=== PATIENT | male | born 1950 ===

== ENCOUNTER → 2020-04-10 15:29 | Outpatient (BNVA) | payer MEDICARE, SELFPAY | PROVIDERS: Visit Provider Nurse Practitioner | DX: K51.30 Ulcerative (chronic) rectosigmoiditis without complications (principal); Z79.899 Other long term (current) drug therapy | CPT/HCPCS: 99212 ==

== ENCOUNTER → 2020-10-08 13:59 | Outpatient (BNVA) | payer BC, MEDICARE, SELFPAY | PROVIDERS: Visit Provider Nurse Practitioner | DX: K51.30 Ulcerative (chronic) rectosigmoiditis without complications (principal) | CPT/HCPCS: 99212 ==

== ENCOUNTER 2020-11-28 10:04 | Outpatient (REF) | payer BC, MEDICARE, SELFPAY ==
[2020-11-28 12:42] LABS: Blood Urea Nitrogen 17 mg/dL (9-16); Estimated Glomerular Filt Rate > 60
== END 2020-11-28 10:05 | disposition home or self-care (01) ==
LOC: HO.LAB 10:04
PROVIDERS: PCP Internal Medicine; Visit Provider Surgery
DX: K57.92 Diverticulitis of intestine, part unspecified, without perforation or abscess without bleeding (principal); K76.9 Liver disease, unspecified
CPT/HCPCS: 36415; 82565; 84520; 99202

== ENCOUNTER 2020-12-12 15:37 | Outpatient (REF) | payer BC, MEDICARE, SELFPAY ==
--- NOTE | ~2020-12-12 | MR_ITS ---
EXAMINATION: MR ABDOMEN WITHOUT AND WITH CONTRAST CLINICAL INFORMATION: Liver disease COMPARISON: No images. Outside abdominal pelvic CT report 11/08/2020 TECHNIQUE: MR abdomen was performed without and with use of 10 mL intravenous Gadavist gadolinium contrast. Postcontrast images are performed in multiphase dynamic sequences. Imaging was performed in 3 planes. FINDINGS: LUNG BASES: The visualized lung bases are unremarkable. LIVER, GALLBLADDER, AND BILIARY TREE: The liver is normal in size and contour. There is fatty infiltration of the liver. There is a 1.5 cm cyst high in the dome of the right lobe of the liver this is low signal on T1-weighted sequences, high signal on T2-weighted sequences and demonstrates no evidence of enhancement. No other focal liver lesion is seen. The gallbladder is normal. There is no biliary duct dilatation.. PANCREAS: There is fatty infiltration of the pancreas. Pancreas is otherwise unremarkable. SPLEEN: Normal. ADRENAL GLANDS: Normal. KIDNEYS AND URETERS: The kidneys are normal in size, shape, and enhance symmetrically. No hydronephrosis. No perinephric stranding. GASTROINTESTINAL TRACT: There is diverticulosis of the colon.. No ascites or fluid collection. ABDOMINAL WALL: There may be an umbilical hernia containing fat. LYMPH NODES: No lymphadenopathy. VASCULAR: Unremarkable. OSSEOUS STRUCTURES: Marrow signal normal. Degenerative changes of the spine. MR/MR abdomen wo/w con IMPRESSION: Fatty infiltration of the liver. 1.4 cm cyst high in the dome of the right lobe of the liver. No other focal liver lesion. Fatty infiltration of the pancreas. Diverticulosis of the colon.
== END 2020-12-12 15:38 | disposition home or self-care (01) ==
LOC: HO.MRI 15:37
PROVIDERS: Visit Provider Surgery
DX: K76.9 Liver disease, unspecified (principal)
CPT/HCPCS: 74183

== ENCOUNTER 2020-12-13 10:26 | Outpatient (REF) | payer BC, MEDICARE, SELFPAY ==
[2020-12-13 13:55] LABS: Alanine Aminotransferase 20 U/L (0-40); Alkaline Phosphatase 58 U/L (39-117); Aspartate Amino Transferase 15 U/L (5-37); Bilirubin Direct 0.2 mg/dL (0.0-0.5); Bilirubin Total 0.6 mg/dL (0.0-1.0); Total Protein 6.6 g/dL (6.5-8.0)
[2020-12-13 14:02] LABS: Ferritin 56 ng/mL (20-250)
[2020-12-16 07:56] LABS: HBc Num1 0.11 S/CO (0.00-0.79); HBsAGNum1 0.18 S/CO (0.00-0.99); Hepatitis B Core Antibody Nonreactive (Nonreactive); Hepatitis B Surface Antigen Negative (Negative)
[2020-12-16 08:09] LABS: HBS Num1 0.49 mIU/mL (0-7.99); ~HepC Num1 0.12 S/CO (0.00-0.79); ~Hepatitis B Surface Antibody NONREACTIVE (Nonreactive); ~Hepatitis C Antibody Nonreactive (Nonreactive)
[2020-12-17 12:26] LABS: Mitochondrial Antibodies NEGATIVE (NEGATIVE)
[2020-12-18 08:17] LABS: Hepatitis A Antibody IgM 0.19 Index (0-0.79); ~Hepatitis A Antibody IgM Nonreactive (Nonreactive)
[2020-12-18 11:31] LABS: Smooth Muscle Antibody <20 U (<20)
[2020-12-18 12:31] LABS: Alpha Fetoprotein 1.6 ng/mL (<6.1)
== END 2020-12-13 10:27 | disposition home or self-care (01) ==
LOC: HO.LAB 10:26
PROVIDERS: PCP Internal Medicine; Visit Provider Nurse Practitioner
DX: K51.30 Ulcerative (chronic) rectosigmoiditis without complications (principal); K76.9 Liver disease, unspecified; K57.92 Diverticulitis of intestine, part unspecified, without perforation or abscess without bleeding; K76.0 Fatty (change of) liver, not elsewhere classified; K76.89 Other specified diseases of liver
CPT/HCPCS: 36415; 80076; 82105; 82728; 86255; 86256; 86704; 86706; 86709; 86803; 87340

== ENCOUNTER → 2021-01-23 08:54 | Outpatient (BNVA) | payer BC, MEDICARE, SELFPAY | PROVIDERS: PCP Internal Medicine; Visit Provider Nurse Practitioner ==

== ENCOUNTER 2021-07-04 08:28 | Outpatient (REF) | payer BC, MEDICARE, SELFPAY ==
[2021-07-04 10:16] LABS: MANUAL DIFF FLAG NO
[2021-07-04 10:53] LABS: Basophils Absolute Auto 0.1 X10*3/uL (0.0-0.2); Basophils Percent Auto 0.8 % (0-2); Eosinophils Absolute Auto 1.2 X10*3/uL (0.0-0.4); Eosinophils Percent Auto 15.4 % (0-4); Hematocrit 42.2 % (42.0-52.0); Hemoglobin 13.9 g/dl (14.0-18.0); Imm Gran Abs Auto 0.06 X10*3/uL (0.00-0.03); Imm Gran Pct Auto 0.8 % (0.0-0.4); Lymphocytes Absolute Auto 2.6 X10*3/uL (1.2-4.9); Lymphocytes Percent Auto 34.1 % (20-40); Mean Corpuscular HGB Conc 32.9 g/dl (31.0-36.0); Mean Corpuscular Hemoglobin 28.6 pg (27.0-33.0); Mean Corpuscular Volume 86.8 fL (80.0-98.0); Mean Platelet Volume 8.8 fL (9.4-12.4); Monocytes Absolute Auto 0.7 X10*3/uL (0.1-1.2); Monocytes Percent Auto 8.9 % (2-11); Neutrophils Absolute Auto 3.1 x10*3/uL (2.0-8.3); Platelet Count 177 X10*3/uL (160-400); Red Blood Count 4.86 X10*6/uL (4.60-5.80); Red Cell Distribution Width 13.8 % (11.0-16.0); White Blood Count 7.7 X10*3/uL (4.8-10.8)
[2021-07-04 11:29] LABS: Alanine Aminotransferase 19 U/L (0-40); Albumin Level 3.9 g/dL (3.5-5.0); Alkaline Phosphatase 67 U/L (39-117); Aspartate Amino Transferase 14 U/L (5-37); Bilirubin Direct 0.2 mg/dL (0.0-0.5); Bilirubin Total 0.4 mg/dL (0.0-1.0); Total Protein 6.8 g/dL (6.5-8.0)
[2021-07-07 13:06] LABS: Alpha Fetoprotein 1.4 ng/mL (<6.1)
== END 2021-07-04 08:29 | disposition home or self-care (01) ==
LOC: HO.LAB 08:28
PROVIDERS: PCP Internal Medicine; Visit Provider Nurse Practitioner
DX: K51.30 Ulcerative (chronic) rectosigmoiditis without complications (principal); K75.81 Nonalcoholic steatohepatitis (NASH)
CPT/HCPCS: 36415; 80076; 82105; 85025; 99212

== ENCOUNTER → 2021-08-01 07:31 | Outpatient (BNVA) | payer BC, MEDICARE, SELFPAY | PROVIDERS: PCP Internal Medicine; Visit Provider Nurse Practitioner ==

== ENCOUNTER 2021-08-22 14:06 | Outpatient (REF) | payer BC, MEDICARE, SELFPAY ==
--- NOTE | ~2021-08-22 | US_ITS ---
EXAMINATION: US ABDOMEN LIMITED CLINICAL INFORMATION: Ulcerative (chronic) rectosigmoiditis, ROMO. Liver cyst on MRI. COMPARISON: MR abdomen without and with contrast 12/12/2020. TECHNIQUE: Real-time imaging of the right upper quadrant abdominal viscera. FINDINGS: PANCREAS: The pancreas is completely obscured by overlying gas. LIVER: The liver is normal in size. The liver contour is normal. No anechoic cysts seen to correspond with MRI liver findings. No focal hepatic lesion. There is no intrahepatic biliary duct dilatation seen. GALLBLADDER: The gallbladder wall thickness is 0.3 cm. The gallbladder is physiologically distended without evidence of stones, sludge, polyps, wall thickening or pericholecystic fluid. There are echogenic non-mobile areas along the inner gallbladder wall questioning adenomyomatosis. COMMON BILE DUCT: Not visualized. RIGHT KIDNEY: Normal. No hydronephrosis. No renal calculi or focal parenchymal lesions. The kidney measures 10.6 cm in maximum dimension. FREE FLUID: None. US/US abdomen limited IMPRESSION: Likely adenomyomatosis of the gallbladder. Pancreas, liver, and right kidney are unremarkable. The CBD is not seen. No liver cyst seen on ultrasound.
== END 2021-08-22 14:07 | disposition home or self-care (01) ==
LOC: HO.US 14:06
PROVIDERS: Visit Provider Nurse Practitioner
DX: K51.30 Ulcerative (chronic) rectosigmoiditis without complications (principal); K75.81 Nonalcoholic steatohepatitis (NASH)
CPT/HCPCS: 76705

== ENCOUNTER 2021-08-29 07:23 | Outpatient (REF) | payer BC, MEDICARE, SELFPAY ==
[2021-08-29 08:59] LABS: MANUAL DIFF FLAG NO
[2021-08-29 09:14] LABS: Basophils Percent Auto 0.3 % (0-2); Eosinophils Absolute Auto 0.3 X10*3/uL (0.0-0.4); Eosinophils Percent Auto 3.7 % (0-4); Hematocrit 40.8 % (42.0-52.0); Hemoglobin 13.3 g/dl (14.0-18.0); Imm Gran Abs Auto 0.06 X10*3/uL (0.00-0.03); Imm Gran Pct Auto 0.8 % (0.0-0.4); Lymphocytes Absolute Auto 1.6 X10*3/uL (1.2-4.9); Lymphocytes Percent Auto 21.5 % (20-40); Mean Corpuscular HGB Conc 32.6 g/dl (31.0-36.0); Mean Corpuscular Hemoglobin 28.3 pg (27.0-33.0); Mean Corpuscular Volume 86.8 fL (80.0-98.0); Mean Platelet Volume 8.8 fL (9.4-12.4); Monocytes Absolute Auto 0.6 X10*3/uL (0.1-1.2); Monocytes Percent Auto 7.8 % (2-11); Neutrophils Absolute Auto 4.9 x10*3/uL (2.0-8.3); Neutrophils Percent Auto 65.9 % (45-73); Platelet Count 176 X10*3/uL (160-400); Red Cell Distribution Width 13.5 % (11.0-16.0); White Blood Count 7.4 X10*3/uL (4.8-10.8)
[2021-08-29 09:36] LABS: C Reactive Protein 9.19 mg/dL (< or = 0.50)
== END 2021-08-29 07:24 | disposition home or self-care (01) ==
LOC: HO.LAB 07:23
PROVIDERS: PCP Internal Medicine; Visit Provider Nurse Practitioner
DX: K62.89 Other specified diseases of anus and rectum (principal); K51.30 Ulcerative (chronic) rectosigmoiditis without complications; K75.81 Nonalcoholic steatohepatitis (NASH)
CPT/HCPCS: 36415; 85025; 86140; 87071; 87073; 87205

== ENCOUNTER 2021-09-12 07:39 | Outpatient (REF) | payer BC, MEDICARE, SELFPAY ==
[2021-09-12 09:45] LABS: C Reactive Protein 0.91 mg/dL (< or = 0.50)
== END 2021-09-12 07:40 | disposition home or self-care (01) ==
LOC: HO.LAB 07:39
PROVIDERS: PCP Internal Medicine; Visit Provider Nurse Practitioner
DX: K51.30 Ulcerative (chronic) rectosigmoiditis without complications (principal); K62.89 Other specified diseases of anus and rectum
CPT/HCPCS: 36415; 86140

== ENCOUNTER → 2021-10-07 07:18 | Outpatient (BNVA) | payer BC, MEDICARE, SELFPAY | PROVIDERS: PCP Family Medicine; Visit Provider Nurse Practitioner | DX: K75.81 Nonalcoholic steatohepatitis (NASH) (principal); K51.30 Ulcerative (chronic) rectosigmoiditis without complications | CPT/HCPCS: 99212 ==

== ENCOUNTER → 2021-12-26 08:23 | Outpatient (BNVA) | payer MEDICARE, MEDICAID, SELFPAY | PROVIDERS: PCP Family Medicine; Visit Provider Nurse Practitioner | DX: K51.30 Ulcerative (chronic) rectosigmoiditis without complications (principal); K50.10 Crohn's disease of large intestine without complications; Z79.52 Long term (current) use of systemic steroids | CPT/HCPCS: 99212 ==

== ENCOUNTER 2022-01-02 09:13 | Outpatient (REF) | payer MEDICARE, MEDICAID, SELFPAY ==
[2022-01-06 23:21] LABS: TS Negative Control Passed; TS Panel A 0; TS Panel B 0; TS Positive Control Passed; TSpotTB Negative (Negative)
== END 2022-01-02 09:14 | disposition home or self-care (01) ==
LOC: HO.LAB 09:13
PROVIDERS: PCP Family Medicine; Visit Provider Nurse Practitioner
DX: Z11.1 Encounter for screening for respiratory tuberculosis (principal); K50.10 Crohn's disease of large intestine without complications
CPT/HCPCS: 36415; 86481

== ENCOUNTER → 2022-01-06 08:39 | Outpatient (BNVA) | payer MEDICARE, MEDICAID, OTHER, SELFPAY | PROVIDERS: PCP Family Medicine; Referring Provider Family Medicine; Visit Provider Nurse Practitioner | DX: K50.10 Crohn's disease of large intestine without complications (principal) | CPT/HCPCS: 99212 ==

== ENCOUNTER → 2022-02-18 09:10 | Outpatient (BNVA) | payer MEDICARE, MEDICAID, SELFPAY | PROVIDERS: PCP Family Medicine; Visit Provider Nurse Practitioner | DX: K50.10 Crohn's disease of large intestine without complications (principal); E11.9 Type 2 diabetes mellitus without complications | CPT/HCPCS: 99212 ==

== ENCOUNTER → 2022-05-13 13:49 | Outpatient (BNVA) | payer MEDICARE, MEDICAID, SELFPAY | PROVIDERS: PCP Family Medicine; Visit Provider Nurse Practitioner | DX: K50.10 Crohn's disease of large intestine without complications (principal); K75.81 Nonalcoholic steatohepatitis (NASH) | CPT/HCPCS: 99212 ==

== ENCOUNTER → 2022-06-24 09:01 | Outpatient (BNVA) | payer MEDICARE, MEDICAID, SELFPAY | PROVIDERS: PCP Family Medicine; Referring Provider Family Medicine; Visit Provider Nurse Practitioner | DX: K50.10 Crohn's disease of large intestine without complications (principal); K75.81 Nonalcoholic steatohepatitis (NASH) | CPT/HCPCS: 99212 ==

== ENCOUNTER → 2022-07-10 09:15 | Outpatient (BNVA) | payer MEDICARE, MEDICAID, SELFPAY | PROVIDERS: PCP Family Medicine; Visit Provider Nurse Practitioner | DX: K50.10 Crohn's disease of large intestine without complications (principal); K75.81 Nonalcoholic steatohepatitis (NASH) | CPT/HCPCS: 99212 ==

== ENCOUNTER 2022-07-31 07:16 | Day surgery (SDC) | payer MEDICARE, OTHER, SELFPAY ==
[2022-07-31 07:57] VITALS: BMI 38.0
[2022-07-31 08:25] VITALS: BP 127/63; PULSE 99; RESP 18; TEMP 36.6; O2SAT 98
[2022-07-31 08:27] LABS: Glucose, Whole Blood 125 mg/dL (60-115)
--- NOTE | 2022-07-31 09:11 | HO.ANESPROP2 ---
HPI - Anesthesia Eval Consult details Narrative: sceening chrohns PMFSH Active Problems Active Problems: All Active Problems (Updated 02/18/22 @ 12:20 by JONATHAN Leo) Diabetes (Acute) Crohn's colitis (Acute) Rectal cyst (Acute) Sepsis (Acute) ROMO (nonalcoholic steatohepatitis) (Acute) Diverticulitis (Acute) Liver cyst (Acute) probableOSA Past Medical History Medical History Diverticulitis Family History Family History Mother Diabetes Breast cancer, Onset Age: 74 Surgical History Surgical History History of right hip replacement Hx of colonoscopy Social History Social History Alcohol intake: current Alcohol intake frequency: does not drink Patient Tobacco Use Status: Never used Tobacco Second Hand Smoke Exposure: No Use of substances other than those prescribed or required for medical reasons: No Are you DNR?: No Advance Directives: No Advance Directives Information Provided: Yes Advance Directives on File: No Meds Allergies Allergy/AdvReac Type Severity Reaction Status Date / Time No Known Allergies Allergy Verified 07/10/22 09:27 Home Medications Medication Instructions Recorded Confirmed Last Taken Type furosemide 20 mg tablet 20 mg PO DAILY 11/28/20 11/28/20 Unknown History naproxen 500 mg tablet,delayed 500 mg PO BID PRN 07/04/21 Unknown History release (EC-Naproxen) blood sugar diagnostic (FreeStyle #10 ea 10/07/21 Unknown History Lite Strips) blood-glucose meter (FreeStyle #1 ea 10/07/21 Unknown History Lite Meter kit) insulin syringe-needle U-100 0.5 #10 ea 10/07/21 Unknown History mL 30 gauge x 1/2 (BD Insulin Syringe Ultra-Fine) pen needle, diabetic 32 gauge x #50 ea 02/18/22 Unknown History 1/4 (Novofine 32) insulin aspart U-100 100 unit/mL subcut 05/13/22 Unknown History subcutaneous solution (Novolog U-100 Insulin aspart) insulin degludec 100 unit/mL (3 45 unit subcut BEDTIME 05/13/22 Unknown History mL) subcutaneous pen (Tresiba FlexTouch U-100 insulin) insulin syringe-needle U-100 0.3 #10 ea 05/13/22 Unknown History mL 31 gauge x 5/16 (BD Insulin Syringe Ultra-Fine) metformin 1,000 mg tablet 1,000 mg PO BID 05/13/22 Unknown History Exam Exam Date and Time: July 31, 2022 0911 Height,Weight and Vital Signs: Height 5 ft 10 in Weight 120.202 kg Last Vital Signs Temp 97.9 F 07/31/22 08:25 Pulse 99 07/31/22 08:25 Resp 18 07/31/22 08:25 BP 127/63 07/31/22 08:25 Pulse Ox 98 07/31/22 08:25 O2 Del Method 07/31/22 08:25 Pertinent Lab Results Pertinent Lab Results: Laboratory Tests 07/31/22 08:23 POC Glucose 125 H Airway Mallampati Class: II (Large neck ) TM Dist: <=3cm Neck ROM: Full Loose/Missing/Broken Teeth: No Heart: rr Lungs: cta Assessment and Plan Final Anesthetic Review Patient Risk: Intermediate Procedure Risk: Low Anesthetic Plan Anesthetic Plan: MAC: Disposition: Standard PACU
--- NOTE | 2022-07-31 09:27 | MHC.SHP ---
Pre-Procedural Eval Section A Date of Service: 07/31/22 The patient is an INPATIENT: No Changes since office visit: Yes Patient answered all questions; No Cold of Flu in the past 2 weeks, No New Medical Problems and No Changes in Medication The History & Physical has been completed within 30 days and I have reviewed it.: Yes Section B Chief Complaint: Nonalcoholic steatohepatitis (ROMO),crohn's diseas Allergies: Allergies Allergy/AdvReac Type Severity Reaction Status Date / Time No Known Allergies Allergy Verified 07/10/22 09:27 Plan I have reviewed the history and physical and performed a pertinent physical examination on my patient. No changes have occurred unless specified. Time Spent With Patient Time: Total time managing care of this patient today ____ minutes.
--- NOTE | 2022-07-31 09:32 | PM.OP ---
Brief Operative Note Date of Service: 07/31/22 Pre-op diagnosis: Colon cancer screening, Crohn's disease Post-op diagnosis: other (Diverticulosis, hemorrhoids, Crohn's disease) Procedure: COLONOSCOPY TO CECUM WITH BIOPSY Surgeon: Macario Torres MD Anesthesia: MAC Was an Assistant Superintendent For Curriculum used for this Procedure?: Yes Assistant Superintendent For Curriculum: Evelyn Smith Estimated blood loss (mL): 5 Pathology: other (A. T. I. bxs, R/O Crohn's disease B. random ascending colon bxs, R/O Crohn's disease C. random transverse colon bxs, R/O Crohn's disease D. random transverse colon bxs, R/O Crohn's disease E. random s) Condition: stable Disposition: PACU
--- NOTE | 2022-07-31 09:33 | W.PM.OPN ---
Operative Note Operative Note Date of Service: 07/31/22 Narrative: Pre-op diagnosis: Colon cancer screening, Crohn's disease Post-op diagnosis:?other (Diverticulosis, hemorrhoids, Crohn's disease) Surgeon: Macario Torres MD Anesthesia:?MAC COLONOSCOPY TILL CECUM WITH BIOPSIES Consent: Indications for the procedure and potential complications of bleeding, perforation, reaction to medications and missed diagnosis were discussed with the patient and informed consent was obtained. Instrument: Olympus PCF H 190 L variable stiffness pediatric colonoscope Monitoring: Vital signs and clinical assessment, intermittent blood pressure monitoring, continuous EKG monitoring, Pulse oximetry and Carbon Dioxide monitoring were done throughout the procedure. Colon withdrawl time was 23 minutes. Procedure: The patient was placed in the left lateral decubitis position and pre-procedure medications were administered. After a digital rectal examination of the ano-rectum, the video colonoscope was inserted into the rectum and advanced through the colon to the cecum. The colonoscope was slowly withdrawn in a retrograde panoramic fashion and the colon mucosa was carefully examined including a retroflexed view of the rectum. Findings and interventions are described below. Procedure Difficulty: Without difficulty Findings: Terminal Ileum: Unable to intubate the TI despite multiple attempts. Blind biopsies were obtained from the TI through the ICV. Cecum: Friable appearing mucosa with patchy erythema throughout the colon - random biopsies were obtained Ascending Colon: Friable appearing mucosa with patchy erythema throughout the colon - random biopsies were obtained Transverse Colon: Friable appearing mucosa with patchy erythema throughout the colon - random biopsies were obtained Descending Colon: Friable appearing mucosa with patchy erythema throughout the colon - random biopsies were obtained. Moderate diverticulosis Sigmoid Colon: Friable appearing mucosa with patchy erythema throughout the colon - random biopsies were obtained. Severe diverticulosis with luminal narrowing Rectum: Normal Ano-rectum: Small internal hemorrhoids Colon preparation: Good to Fair despite copious irrigation Impression and Post Procedure Diagnosis: Colonoscopy Findings: No polyps were detected Friable appearing mucosa with patchy erythema throughout the colon - random biopsies were obtained Moderate diverticulosis seen in the left colon Small hemorrhoids on retroflexed exam. Plan: Await pathology results Patient has an appointment on 08/13/22 in the [facility] with Zoya Diaz NP. Repeat Colonoscopy interval based on path results - in 4 years (start surveillance for Crohn's disease - symptom onset in 2019). Above findings were reviewed with the patient and diverticulosis handout was given in the discharge area
[2022-07-31 10:22] VITALS: BP 119/65; PULSE 95; RESP 16; TEMP 36.8; O2SAT 96
[2022-07-31 10:37] VITALS: BP 128/77; PULSE 90; RESP 18; TEMP 36.4; O2SAT 98
== END 2022-07-31 11:30 | disposition home or self-care (01) ==
PROVIDERS: PCP Family Medicine; Visit Provider Internal Medicine Gastroenterology
PROC: 0DJD8ZZ Inspection of Lower Intestinal Tract, Via Natural or Artificial Opening Endoscopic (ICD-10-PCS; CPT 45378; principal; 2022-07-31 09:20)
DX: Z12.11 Encounter for screening for malignant neoplasm of colon (principal); K57.30 Diverticulosis of large intestine without perforation or abscess without bleeding; K64.8 Other hemorrhoids; K50.10 Crohn's disease of large intestine without complications; K75.81 Nonalcoholic steatohepatitis (NASH); E13.9 Other specified diabetes mellitus without complications; Z79.4 Long term (current) use of insulin; Z79.899 Other long term (current) drug therapy; Z87.19 Personal history of other diseases of the digestive system
CPT/HCPCS: 45380; 82947; 88305

== ENCOUNTER 2022-08-13 08:04 | Outpatient (REF) | payer MEDICARE, OTHER, SELFPAY ==
[2022-08-13 09:38] LABS: MANUAL DIFF FLAG NO
[2022-08-13 09:42] LABS: Basophils Percent Auto 0.6 % (0-2); Eosinophils Percent Auto 0.3 % (0-4); Hematocrit 43.8 % (42.0-52.0); Hemoglobin 14.2 g/dl (14.0-18.0); Imm Gran Abs Auto 0.02 X10*3/uL (0.00-0.03); Imm Gran Pct Auto 0.3 % (0.0-0.4); Lymphocytes Absolute Auto 2.7 X10*3/uL (1.2-4.9); Lymphocytes Percent Auto 39.3 % (20-40); Mean Corpuscular HGB Conc 32.4 g/dl (31.0-36.0); Mean Corpuscular Hemoglobin 28.1 pg (27.0-33.0); Mean Corpuscular Volume 86.7 fL (80.0-98.0); Mean Platelet Volume 9.4 fL (9.4-12.4); Monocytes Absolute Auto 0.7 X10*3/uL (0.1-1.2); Monocytes Percent Auto 10.8 % (2-11); Neutrophils Absolute Auto 3.3 x10*3/uL (2.0-8.3); Neutrophils Percent Auto 48.7 % (45-73); Platelet Count 198 X10*3/uL (160-400); Red Blood Count 5.05 X10*6/uL (4.60-5.80); Red Cell Distribution Width 13.2 % (11.0-16.0); White Blood Count 6.8 X10*3/uL (4.8-10.8)
[2022-08-13 10:57] LABS: Alanine Aminotransferase 16 U/L (0-40); Albumin Level 3.9 g/dL (3.5-5.0); Alkaline Phosphatase 77 U/L (39-117); Anion Gap 14 (12-20); Aspartate Amino Transferase 20 U/L (5-37); Bilirubin Total 0.7 mg/dL (0.0-1.0); Blood Urea Nitrogen 12 mg/dL (9-16); Calcium 8.8 mg/dL (8.4-10.2); Carbon Dioxide 31 mmol/L (22-29); Chloride 102 mmol/L (96-108); Estimated Glomerular Filt Rate > 60; Glucose Random 143 mg/dL (60-115); Potassium 4.5 mmol/L (3.3-5.1); Sodium 142 mmol/L (135-145); Total Protein 6.2 g/dL (6.5-8.0)
== END 2022-08-13 08:05 | disposition home or self-care (01) ==
LOC: HO.LAB 08:04
PROVIDERS: PCP Family Medicine; Referring Provider Family Medicine; Visit Provider Nurse Practitioner
DX: K75.81 Nonalcoholic steatohepatitis (NASH) (principal); K50.10 Crohn's disease of large intestine without complications
CPT/HCPCS: 36415; 80053; 82105; 85025; 99212

== ENCOUNTER 2022-09-10 09:09 | Outpatient (REF) | payer MEDICARE, OTHER, SELFPAY ==
--- NOTE | ~2022-09-10 | US_ITS ---
EXAMINATION: US ABDOMEN LIMITED CLINICAL INFORMATION: Nonalcoholic steatohepatitis. COMPARISON: Limited abdominal ultrasound 08/22/2021. MRI abdomen 12/12/2020. TECHNIQUE: Real-time imaging of the right upper quadrant abdominal viscera. FINDINGS: PANCREAS: The visible portion of the pancreas appears normal. Most of the pancreas is obscured by bowel gas. LIVER: The liver is normal in size. The liver contour is normal. There is diffuse increased liver parenchymal echogenicity, consistent with hepatic steatosis. There is a 1.4 cm simple cyst in the posterior right lobe. There is no intrahepatic biliary duct dilatation seen. GALLBLADDER: Cholesterol crystal artifact in the wall the gallbladder consistent with adenomyomatosis. No discrete gallstone. No mural edema or pericholecystic fluid. COMMON BILE DUCT: Normal in caliber measuring 0.2 cm in diameter. RIGHT KIDNEY: Normal. No hydronephrosis. No renal calculi or focal parenchymal lesions. The kidney measures 11.5 cm in maximum dimension. FREE FLUID: None. US/US abdomen limited IMPRESSION: Fatty liver.
== END 2022-09-10 09:10 | disposition home or self-care (01) ==
LOC: HO.US 09:09
PROVIDERS: PCP Family Medicine; Visit Provider Nurse Practitioner
DX: K75.81 Nonalcoholic steatohepatitis (NASH) (principal)
CPT/HCPCS: 76705

== ENCOUNTER 2022-11-12 08:13 | Outpatient (REF) | payer MEDICARE, OTHER, SELFPAY ==
[2022-11-12 10:43] LABS: C Reactive Protein 0.15 mg/dL (< or = 0.50)
== END 2022-11-12 08:14 | disposition home or self-care (01) ==
LOC: HO.LAB 08:13
PROVIDERS: PCP Family Medicine; Visit Provider Nurse Practitioner
DX: K50.10 Crohn's disease of large intestine without complications (principal); K75.81 Nonalcoholic steatohepatitis (NASH); R19.7 Diarrhea, unspecified
CPT/HCPCS: 36415; 86140; 99212

== ENCOUNTER 2022-11-17 13:10 | Outpatient (REF) | payer MEDICARE, OTHER, SELFPAY ==
[2022-11-25 23:58] LABS: Calprotectin, Fecal 60 mcg/g
== END 2022-11-17 13:11 | disposition home or self-care (01) ==
LOC: HO.LNP 13:10
PROVIDERS: Visit Provider Nurse Practitioner
DX: R19.7 Diarrhea, unspecified (principal)
CPT/HCPCS: 83993

== ENCOUNTER 2022-12-24 08:26 | Outpatient (AMB) | payer MEDICARE, MEDICAID, SELFPAY ==
--- NOTE | 2022-12-24 08:31 | MHC.OFFVIS ---
Intake Vital Signs 12/24/22 08:43 Height 5 ft 10 in Weight 240 lb 11.916 oz BMI 34.5 BP 117/66 Blood Pressure Location Lt brachial Position Sitting Pulse 92 Intake Visit Reasons: 4 week f/u r/s from 12/10 Intake Note: Naveed presents in office as a est.patient for a 3month f/u PT CC: pt reports watery/ loose stool are worse. He reports last week when he was going to the bathroom it what black water. His last dose of Humira was last Wednesday. He states yesterday his stools were back to brown but still has loose stools. He also reports appetite is non existent , and feeling weakness. He states he feels the Humira is no longer working well for him. Denies other GI symptoms. Band Saw Filer Required: No Accompanied by: Self / Same As Patient Allergies No Known Allergies Allergy (Verified 12/24/22 08:47) HPI 4 week f/u r/s from 12/10 HPI Details AAssessment & Plan (1) Crohn's colitis: ?Code(s): K50.10 - Crohn's disease of large intestine without complications ?Plan: He just had a left hip replacement! This was slightly unexpected as it became suddenly painful in the same way his right did before he had that one replaced. They also noticed a prostate growth on the MRI that he will be following up on. He is taking his Humira as prescribed, but he stools have been very loose and a lot of cramping. But he has episodes of pure water and fecal urgency - then he won't have a BM for 3 days. We will get a CRP and stool studies to look in to this. He does have a large body mass, so a dose adjustment may be needed. He has lost wt, about 10 lbs, because for about a year he has had no appetite. He is adverse of going back on the steroids r/t his diabetes control (which has been excellent recently and all insulin has been d/c'ed) and wt. This could also be a s/e of metformin. He also may be lactose intolerant, he has noted milk/cream causes some problems. We discuss Lactaid in milk and pill form. Until we find a cause I educate him that using OTC Imodium is totally fine - carmela since he has a wedding event coming up that he would like to enjoy w/o worrying about fecal urgency. .? We review all of the labs and ultrasound appears that his fatty liver is stable and is even improving once he is off the steroids with better glucose control and with weight loss. Return office visit in 4 weeks (2) ROMO (nonalcoholic steatohepatitis): ?Comment: BASELINE Laboratory Tests ?11/28/20 Estimated GFR > 60 Ferritin 56 Total Bilirubin 0.6 Direct Bilirubin 0.2 AST 15 ALT 20 Alkaline Phosphatase 58 Alpha Fetoprotein 1.6 Anti-Mitochondrial Ab NEGATIVE Anti-Smooth Muscle Ab <20 Hepatitis A IgM Ab Nonreactive Hep Bs Antigen Negative Hep Bs Antibody NONREACTIVE Hep B Core Total Ab Nonreactive Hepatitis C Ab (EIA) Nonreactive CURRENT LABS 08/13/2302/ ?[id number] WBC 6.8 Hgb 14.2 Hct 43.8 Estimated GFR > 60 Total Bilirubin 0.7 AST 20 ALT 16 Alkaline Phosphatase 77 Alpha Fetoprotein 2.0 ULTRASOUND OF THE ABDOMEN 09/16/22 FINDINGS: PANCREAS: The visible portion of the pancreas appears normal. Most of the pancreas is obscured by bowel gas. LIVER: The liver is normal in size. The liver contour is normal. There is diffuse increased liver parenchymal echogenicity, consistent with hepatic steatosis.? There is a 1.4 cm simple cyst in the posterior right lobe. There is no intrahepatic biliary duct dilatation seen. GALLBLADDER: Cholesterol crystal artifact in the wall the gallbladder consistent with adenomyomatosis. No discrete gallstone. No mural edema or pericholecystic fluid. COMMON BILE DUCT: Normal in caliber measuring 0.2 cm in diameter. RIGHT KIDNEY: Normal. No hydronephrosis. No renal calculi or focal parenchymal lesions. The kidney measures 11.5 cm in maximum dimension. FREE FLUID: None. US/US abdomen limited IMPRESSION: Fatty liver. ?Code(s): K75.81 - Nonalcoholic steatohepatitis (ROMO) (3) Acute diarrhea: ?Code(s): R19.7 - Diarrhea, unspecified ? ? ? Orders: Orders C Reactive Protein Today R19.7 - Diarrhea, unspecified ? GI Panel Today R19.7 - Diarrhea, unspecified ? Calprotectin, Feca l Today R19.7 - Diarrhea, unspecified ? LABS Laboratory Tests 11/12/22 11/17/22 09:27 10:10 C-Reactive Protein 0.15 Stool Calprotectin 60 CORRESPONDENCE . On 11/11/22 @ 14:38 Rabia Diaz Wrote To Emily,August I see patient is coming in tomorrow for a visit. I just wanted to send an FYI as he called our office yesterday stating he needed a new PA for Humira. I have already spoken w/ Abdi who has been assisting with this patient and he is actively working on it. TODAYS VISIT We review the tests and there is no indication that his Crohns is not well enoiugh controlled on the current Humira dose. Yet, he continues to have ?watery black? diarrhea on a pretty regular basis. Occasionally he will have soft stools but never anything approaching what his normal baseline was for a while after starting Humira. I am quite concerned because the GI panel I ordered does not appear to of have been processed through the lab and I want to exclude any infectious etiology.. I am also going to get a pancreatic a last taste to see if this is contributing to his diarrhea but in the meantime will start him on some Carafate 2 tabs daily hoping that this is a manifestation of irritable bowel syndrome. I am also concerned because he is losing weight and while he is obese we do not want his nutritional status compromise. It is also possible it is diarrhea secondary to his metformin since this was started about the same time we retreating the Crohn's. However this does not well explain why he did not have diarrhea for a while for started treatment. I have asked him to the GI panel again and I will see him in 2 weeks to see how he is doing on the Carafate. [facility] Medical History Diverticulitis Surgical History History of right hip replacement Hx of colonoscopy Family History Mother Diabetes Breast cancer, Onset Age: 74 Social History Alcohol intake: current Alcohol intake frequency: does not drink Patient Tobacco Use Status: Never used Tobacco Second Hand Smoke Exposure: No Review of Systems Const Denies fatigue, Denies fever(s), Denies night sweats, Denies poor appetite and Reports weight loss (Likely secondary to diarrhea) Eyes Details: glasses Reports requires corrective lenses ENT Reports Normal hearing present, Denies dental pain, Denies dysphagia, Denies hearing loss, Denies mouth pain, Denies odynophagia, Denies throat swelling, Denies tongue swelling and Reports other (Dentition adequate) Card Reports no additional complaints Resp Reports no additional complaints GI Denies abdominal pain, Denies melena, Denies bloating, Denies hematochezia, Denies constipation, Denies GI cramping, Denies dysphagia, Reports excessive flatus, Denies early satiety, Denies heartburn, Reports diarrhea, Denies nausea, Denies odynophagia, Denies vomiting and Denies hematemesis Skin/Breast Denies pruritus, Denies lesions, Denies rash and Denies jaundice Neuro Reports Normal hearing present and Denies Abnormal speech present Endo Denies fatigue Aller/Immun Denies throat swelling and Denies tongue swelling Physical Exam Vital Signs: Last Vital Signs Pulse 92 12/24/22 08:43 BP 117/66 12/24/22 08:43 BMI result Body Mass Index 34.5 Const General: cooperative, no acute distress, well developed and well groomed Nutritional Appearance: well nourished and obese Orientation/consciousness: oriented to person, oriented to place and oriented to time Limitations: No language barrier HEENT Head: Yes normocephalic and Yes atraumatic Eyes General: appearance normal, both eyes and all related structures Pupils: Equal, round and reactive pupils present Neck Neck: Yes normal visual inspection and Yes no lymphadenopathy Thyroid: Thyroid normal Resp Effort & Inspection: normal respiratory effort and able to speak in complete sentences Auscultation: clear to auscultation bilaterally Cardio Rate: regular rate Rhythm: regular rhythm Heart sounds: Normal, physiologic split S2 sound present Peripheral pulses: radial pulses present and posterior tibial pulses present GI Inspection: No distended, Yes Abdominal panniculus present and Yes obesity Palpation (GI): Soft to palpation, nontender, no guarding, not rigid and No hepatosplenomegaly present Percussion: Yes normal to percussion Auscultation: normal bowel sounds Rectal Exam - Male: Yes deferred Skin General skin exam: no rashes or lesions noted, turgor normal, skin not dry, no jaundice, No spider nevi and no striae Rashes: no rashes Nails: normal Neuro General: oriented to person, oriented to place and oriented to time Cranial nerves: Yes Equal, round and reactive pupils present and Yes Normal hearing present Speech: No Abnormal speech present Extrem General: Yes normal to inspection, No clubbing, No cyanosis and No edema Psych Appearance: grossly normal and well kempt Mental Status: mental status grossly normal Speech and movement: Normal speech and movement present Affect: normal affect Attitude: cooperative Thought process: Normal thought process present and not confabulating Thought content: Normal thought content present Insight: Good insight present (Psych) Judgement: Good judgement present (Psych) Assessment & Plan Assessment & Plan (1) Acute diarrhea: Code(s): R19.7 - Diarrhea, unspecified Plan: We review the tests and there is no indication that his Crohns is not well enoiugh controlled on the current Humira dose. Yet, he continues to have ?watery black? diarrhea on a pretty regular basis. Occasionally he will have soft stools but never anything approaching what his normal baseline was for a while after starting Humira. I am quite concerned because the GI panel I ordered does not appear to of have been processed through the lab and I want to exclude any infectious etiology.. I am also going to get a pancreatic a last taste to see if this is contributing to his diarrhea but in the meantime will start him on some Carafate 2 tabs daily hoping that this is a manifestation of irritable bowel syndrome. I am also concerned because he is losing weight and while he is obese we do not want his nutritional status compromise. It is also possible it is diarrhea secondary to his metformin since this was started about the same time we retreating the Crohn's. However this does not well explain why he did not have diarrhea for a while for started treatment. I have asked him to the GI panel again and I will see him in 2 weeks to see how he is doing on the Carafate. (2) Crohn's colitis: Code(s): K50.10 - Crohn's disease of large intestine without complications (3) ROMO (nonalcoholic steatohepatitis): Comment: BASELINE Laboratory Tests 11/28/20 Estimated GFR > 60 Ferritin 56 Total Bilirubin 0.6 Direct Bilirubin 0.2 AST 15 ALT 20 Alkaline Phosphatase 58 Alpha Fetoprotein 1.6 Anti-Mitochondrial Ab NEGATIVE Anti-Smooth Muscle Ab <20 Hepatitis A IgM Ab Nonreactive Hep Bs Antigen Negative Hep Bs Antibody NONREACTIVE Hep B Core Total Ab Nonreactive Hepatitis C Ab (EIA) Nonreactive CURRENT LABS 08/13/2302/ [id number] WBC 6.8 Hgb 14.2 Hct 43.8 Estimated GFR > 60 Total Bilirubin 0.7 AST 20 ALT 16 Alkaline Phosphatase 77 Alpha Fetoprotein 2.0 ULTRASOUND OF THE ABDOMEN 09/16/22 FINDINGS: PANCREAS: The visible portion of the pancreas appears normal. Most of the pancreas is obscured by bowel gas. LIVER: The liver is normal in size. The liver contour is normal. There is diffuse increased liver parenchymal echogenicity, consistent with hepatic steatosis.? There is a 1.4 cm simple cyst in the posterior right lobe. There is no intrahepatic biliary duct dilatation seen. GALLBLADDER: Cholesterol crystal artifact in the wall the gallbladder consistent with adenomyomatosis. No discrete gallstone. No mural edema or pericholecystic fluid. COMMON BILE DUCT: Normal in caliber measuring 0.2 cm in diameter. RIGHT KIDNEY: Normal. No hydronephrosis. No renal calculi or focal parenchymal lesions. The kidney measures 11.5 cm in maximum dimension. FREE FLUID: None. US/US abdomen limited IMPRESSION: Fatty liver. Code(s): K75.81 - Nonalcoholic steatohepatitis (ROMO) Orders: Orders Pancreatic Elastase-1 Today R19.7 - Diarrhea, unspecified Medications: New sucralfate (Carafate) 2 grams (2 x 1 gram) PO .qacsupper 60 tabs 3RF sucralfate (Carafate) 2 grams (2 x 1 gram) PO .qacsupper 60 tabs 3RF Coding Level of Care Code Est Pt Level 3 (68371) Diagnoses Acute diarrhea R19.7 Crohn's colitis K50.10 ROMO (nonalcoholic steatohepatitis) K75.81
[2022-12-24 08:43] VITALS: BP 117/66; PULSE 92; BMI 34.5
== END 2022-12-24 09:41 | disposition home or self-care (01) ==
PROVIDERS: PCP Family Medicine; Visit Provider Nurse Practitioner
DX: R19.7 Diarrhea, unspecified (principal); K50.10 Crohn's disease of large intestine without complications; K75.81 Nonalcoholic steatohepatitis (NASH)
CPT/HCPCS: 99213

== ENCOUNTER → 2022-12-24 08:26 | Outpatient (BNVA) | payer MEDICARE, OTHER, SELFPAY | PROVIDERS: PCP Family Medicine; Visit Provider Nurse Practitioner | DX: K75.81 Nonalcoholic steatohepatitis (NASH) (principal); K50.10 Crohn's disease of large intestine without complications; R19.7 Diarrhea, unspecified | CPT/HCPCS: 99212 ==

== ENCOUNTER 2022-12-25 19:09 | Emergency (ER) | payer MEDICARE, MEDICAID, SELFPAY ==
[2022-12-25 19:17] VITALS: BP 105/69; PULSE 111; RESP 18; TEMP 36.6; O2SAT 97; BMI 34.3
--- NOTE | 2022-12-25 19:17 | ED_ITS ---
HPI - General Adult General Chief complaint: Nausea/Vomiting/Diarrhea Stated complaint: diarrhea Related Data Home Medications Medication Instructions Recorded Confirmed furosemide 20 mg tablet 20 mg PO DAILY 11/28/20 11/28/20 blood sugar diagnostic (FreeStyle #10 ea 10/07/21 Lite Strips) blood-glucose meter (FreeStyle #1 ea 10/07/21 Lite Meter kit) metformin 1,000 mg tablet 1,000 mg PO BID 05/13/22 triamcinolone acetonide 0.1 % appl topical TID 12/24/22 topical cream Previous Rx's Medication Instructions Recorded mupirocin 2 % topical ointment 1 appl topical TID #22 grams 08/29/21 adalimumab 40 mg/0.8 mL 40 mg (0.8 mL) subcut .COMPLEX #6 07/01/22 subcutaneous pen kit (Humira Pen ea Crohn's[facility] Colitis-Hid Sup Starter) adalimumab 40 mg/0.8 mL See Rx Instructions subcut 08/27/22 subcutaneous pen kit (Humira Pen) .COMPLEX #2 ea sucralfate 1 gram tablet (Carafate) 2 g PO .qacsupper #60 tabs 12/24/22 Allergies Allergy/AdvReac Type Severity Reaction Status Date / Time No Known Allergies Allergy Verified 12/25/22 19:23 [facility] Past Medical History Medical History Diverticulitis Surgical History History of right hip replacement Hx of colonoscopy Family History Family History Mother Diabetes Breast cancer, Onset Age: 74 Social History Social History Alcohol intake: current Alcohol intake frequency: does not drink Patient Tobacco Use Status: Never used Tobacco Second Hand Smoke Exposure: No Advance Directives: No Advance Directives Information Provided: Yes Physical Exam ED Vital Signs: Vital Signs - 24 hr 12/25/22 19:17 12/26/22 00:00 Temperature 97.9 F 97.9 F Pulse Rate 111 H 87 Respiratory Rate 18 18 Blood Pressure 105/69 148/97 H Pulse Oximetry 97 96 Oxygen Delivery Method Room Air Room Air BMI result Body Mass Index 34.3 Course Course Course Narrative: This is a rapid medical exam: Additional HPI, ROS, PE not included below will be deferred to primary provider. Patient is a 72-year-old male with history of Crohn's colitis, ROMO, diverticulitis presenting to the ED with two weeks of diarrhea. Saw August, PRODUCTION MECHANIC TIN CANS at GI yesterday, was prescribed sucralfate, states symptoms have not improved. Reports 5-6 episodes of diarrhea today. Denies fevers. Has been tolerating fluids. Plan: labs, Medical Decision Making Lab Data 12/25/22 19:54 12/25/22 19:54 Labs: Lab Results 12/25/22 12/25/22 12/25/22 Range/Units 19:54 19:54 19:54 WBC 9.4 (4.8-10.8) X10*3/uL RBC 4.82 (4.60-5.80) X10*6/uL Hgb 13.7 L (14.0-18.0) g/dl Hct 42.2 (42.0-52.0) % MCV 87.6 (80.0-98.0) fL MCH 28.4 (27.0-33.0) pg MCHC 32.5 (31.0-36.0) g/dl RDW 13.7 (11.0-16.0) % Plt Count 207 (160-400) X10*3/uL MPV 9.3 L (9.4-12.4) fL Immature Gran % (Auto) 0.3 (0.0-0.4) % Neut % (Auto) 68.3 (45-73) % Lymph % (Auto) 25.4 (20-40) % Maury % (Auto) 5.7 (2-11) % Eos % (Auto) 0.1 (0-4) % Baso % (Auto) 0.2 (0-2) % Lymph # (Auto) 2.4 (1.2-4.9) X10*3/uL Maury # (Auto) 0.5 (0.1-1.2) X10*3/uL Eos # (Auto) 0.0 (0.0-0.4) X10*3/uL Baso # (Auto) 0.0 (0.0-0.2) X10*3/uL Abs Immat Gran (auto) 0.03 (0.00-0.03) X10*3/uL Absolute Neuts (auto) 6.4 (2.0-8.3) x10*3/uL Absolute Nucleated RBC 0.000 (0.0-0.012) X10*3/uL Nucleated RBC % (auto) 0.0 (0.0-0.2) /100WBC Sodium 141 (135-145) mmol/L Potassium 3.9 (3.3-5.1) mmol/L Chloride 104 (96-108) mmol/L Carbon Dioxide 24 (22-29) mmol/L Anion Gap 17 (12-20) BUN 16 (9-16) mg/dL Creatinine 1.04 (0.5-1.4) mg/dL Estim Creat Clear Calc 78.0 Estimated GFR > 60 Random Glucose 200 H (60-115) mg/dL Calcium 9.2 (8.4-10.2) mg/dL Magnesium 1.7 (1.6-2.6) mg/dL Total Bilirubin 0.5 (0.0-1.0) mg/dL AST 17 (5-37) U/L ALT 15 (0-40) U/L Alkaline Phosphatase 89 (39-117) U/L Total Protein 7.3 (6.5-8.0) g/dL Albumin 4.1 (3.5-5.0) g/dL Lipase 11 (8-78) U/L Urine Color Yellow Urine Appearance Clear Urine pH 5.5 (5.0-9.0) Ur Specific [place] 1.020 (1.005-1.025) Urine Protein Negative (Neg-Trace) mg/dL Urine Glucose (UA) Negative (Negative) mg/dL Urine Ketones Trace (Negative) mg/dL Urine Blood Negative (Negative) Urine Nitrite Negative (Negative) Ur Leukocyte Esterase Negative (Negative) Discharge Plan Discharge Clinical Impression: Diarrhea Patient Disposition: Elopement Prescriptions: No Action Humira Pen [id number] Start 40 mg/0.8 mL pen injector kit 40 mg subcut .COMPLEX Qty: 6 12RF Rx Instructions: 40 mg subcutaneously q 2 weeks Humira Pen 40 mg/0.8 mL pen injector kit See Rx Instructions subcut .COMPLEX Qty: 2 6RF Rx Instructions: inject one - 40 mg/0.8 mL pen every 2 weeks subcut furosemide 20 mg tablet 20 mg PO DAILY mupirocin 2 % ointment 1 appl topical TID Qty: 22 3RF (DME) blood-glucose meter [FreeStyle Lite Meter] Kit See Rx Instructions .ROUTE TID Qty: 1 Rx Instructions: As directed (DME) FreeStyle Lite Strips Strip See Rx Instructions Not Applicable DIRECTED Qty: 10 Rx Instructions: As directed metformin 1,000 mg tablet 1,000 mg PO BID triamcinolone acetonide 0.1 % cream topical TID sucralfate [Carafate] 1 gram tablet 2 g PO .qacsupper Qty: 60 3RF Interventions: ED Discharge Assessment Last Done: 12/26/22 00:16 Discharge Date/Time: 12/26/22 00:16
[2022-12-25 20:01] LABS: MANUAL DIFF FLAG NO
[2022-12-25 20:02] LABS: Basophils Percent Auto 0.2 % (0-2); Eosinophils Percent Auto 0.1 % (0-4); Hematocrit 42.2 % (42.0-52.0); Hemoglobin 13.7 g/dl (14.0-18.0); Imm Gran Abs Auto 0.03 X10*3/uL (0.00-0.03); Imm Gran Pct Auto 0.3 % (0.0-0.4); Lymphocytes Absolute Auto 2.4 X10*3/uL (1.2-4.9); Lymphocytes Percent Auto 25.4 % (20-40); Mean Corpuscular HGB Conc 32.5 g/dl (31.0-36.0); Mean Corpuscular Hemoglobin 28.4 pg (27.0-33.0); Mean Corpuscular Volume 87.6 fL (80.0-98.0); Mean Platelet Volume 9.3 fL (9.4-12.4); Monocytes Absolute Auto 0.5 X10*3/uL (0.1-1.2); Monocytes Percent Auto 5.7 % (2-11); Neutrophils Absolute Auto 6.4 x10*3/uL (2.0-8.3); Neutrophils Percent Auto 68.3 % (45-73); Platelet Count 207 X10*3/uL (160-400); Red Blood Count 4.82 X10*6/uL (4.60-5.80); Red Cell Distribution Width 13.7 % (11.0-16.0); White Blood Count 9.4 X10*3/uL (4.8-10.8)
[2022-12-25 20:04] LABS: Appearance Urine Clear; Color Urine Yellow; Glucose Urine UA Negative (Negative); Leukocyte Esterase Urine Negative (Negative); Nitrite Urine Negative (Negative); PH 5.5 (5.0-9.0); Urine Blood Negative (Negative); Urine Ketones Trace mg/dL (Negative); Urine Protein Negative (Neg-Trace)
[2022-12-25 20:40] LABS: Alanine Aminotransferase 15 U/L (0-40); Albumin Level 4.1 g/dL (3.5-5.0); Alkaline Phosphatase 89 U/L (39-117); Anion Gap 17 (12-20); Aspartate Amino Transferase 17 U/L (5-37); Bilirubin Total 0.5 mg/dL (0.0-1.0); Blood Urea Nitrogen 16 mg/dL (9-16); Calcium 9.2 mg/dL (8.4-10.2); Carbon Dioxide 24 mmol/L (22-29); Chloride 104 mmol/L (96-108); Estimated Glomerular Filt Rate > 60; Glucose Random 200 mg/dL (60-115); Lipase 11 U/L (8-78); Magnesium 1.7 mg/dL (1.6-2.6); Potassium 3.9 mmol/L (3.3-5.1); Sodium 141 mmol/L (135-145); Total Protein 7.3 g/dL (6.5-8.0)
[2022-12-26] VITALS: BP 148/97; PULSE 87; RESP 18; TEMP 36.6; O2SAT 96
== END 2022-12-26 00:16 | disposition left against medical advice (07) ==
PROVIDERS: Registered Nurse Emergency; Emergency Provider Emergency Medicine; PCP Family Medicine
DX: R19.7 Diarrhea, unspecified (principal); E11.9 Type 2 diabetes mellitus without complications; K50.10 Crohn's disease of large intestine without complications; Z79.899 Other long term (current) drug therapy; Z79.84 Long term (current) use of oral hypoglycemic drugs
CPT/HCPCS: 36415; 80053; 81003; 83690; 83735; 85025; 99282; 99283

== ENCOUNTER 2022-12-28 17:56 | Outpatient (REF) | payer MEDICARE, MEDICAID, SELFPAY ==
[2023-01-05 02:59] LABS: Pancreatic Elastase-1 489 mcg/g
== END 2022-12-28 17:57 | disposition home or self-care (01) ==
LOC: HO.LNP 17:56
PROVIDERS: Visit Provider Nurse Practitioner
DX: R19.7 Diarrhea, unspecified (principal)
CPT/HCPCS: 82656; 87507

== ENCOUNTER 2022-12-31 06:18 | Outpatient (REF) | payer MEDICARE, MEDICAID, SELFPAY ==
[2022-12-31 07:12] LABS: Hematocrit 42.2 % (42.0-52.0); Hemoglobin 13.7 g/dl (14.0-18.0); Mean Corpuscular HGB Conc 32.5 g/dl (31.0-36.0); Mean Corpuscular Hemoglobin 28.6 pg (27.0-33.0); Mean Corpuscular Volume 88.1 fL (80.0-98.0); Mean Platelet Volume 9.8 fL (9.4-12.4); Platelet Count 191 X10*3/uL (160-400); Red Blood Count 4.79 X10*6/uL (4.60-5.80); Red Cell Distribution Width 13.7 % (11.0-16.0); White Blood Count 7.1 X10*3/uL (4.8-10.8)
[2022-12-31 12:49] LABS: Adenovirus F 40/41 Not Detected (Not Detect.); Astrovirus Not Detected (Not Detect.); Campylobacter Not Detected (Not Detect.); Cryptosporidium Not Detected (Not Detect.); Cyclospora cayetanensis Not Detected (Not Detect.); E. coli EAEC Not Detected (Not Detect.); E. coli EPEC Not Detected (Not Detect.); E. coli ETEC Not Detected (Not Detect.); E. coli STEC Not Detected (Not Detect.); Entamoeba histolytica Not Detected (Not Detect.); Giardia lamblia Not Detected (Not Detect.); Norovirus GI/GII Not Detected (Not Detect.); Plesiomonas shigelloides Not Detected (Not Detect.); Rotavirus A Not Detected (Not Detect.); Salmonella Not Detected (Not Detect.); Sapovirus Not Detected (Not Detect.); Shigella sp./EIEC Not Detected (Not Detect.); Vibrio Not Detected (Not Detect.); Vibrio Cholerae Not Detected (Not Detect.); Yersinia enterocolitica Not Detected (Not Detect.)
[2022-12-31 15:07] LABS: CDiff Gene PCR NEGATIVE (Negative)
[2023-01-07 17:18] LABS: Calprotectin, Fecal 97 mcg/g
== END 2022-12-31 06:19 | disposition home or self-care (01) ==
LOC: HO.LAB 06:18
PROVIDERS: PCP Family Medicine; Visit Provider Internal Medicine
DX: K50.10 Crohn's disease of large intestine without complications (principal)
CPT/HCPCS: 36415; 83993; 85027; 86140; 87493; 87507

== ENCOUNTER 2023-01-08 08:50 | Outpatient (AMB) | payer MEDICARE, MEDICAID, SELFPAY ==
--- NOTE | 2023-01-08 08:59 | A.OFFVIS_ITS ---
Intake Vital Signs 01/08/23 09:00 Height 5 ft 10 in Weight 242 lb 8.136 oz BMI 34.8 BP 124/69 Blood Pressure Location Rt brachial Position Sitting Pulse 84 Intake Visit Reasons: 2 week follow up Intake Note: Patient presents to in office today in 2 weeks follow up. CC: Patient reports he was able to talk to director speech language nurse about his diarrhea and symptoms of diarrhea. He was advised to D/C the metformin and he is now back to normal BM. Denies other GI symptoms. Biomass Boiler Operator Required: No Accompanied by: Self / Same As Patient Allergies No Known Allergies Allergy (Verified 01/08/23 09:08) HPI 2 week follow up HPI Details Assessment & Plan (1) Acute diarrhea: ?Code(s): R19.7 - Diarrhea, unspecified ?Plan: We review the tests and there is no indication that his Crohns is not well enoiugh controlled on the current Humira dose. Yet, he continues to have ?watery black? diarrhea on a pretty regular basis.? Occasionally he will have soft stools but never anything approaching what his normal baseline was for a while after starting Humira. I am quite concerned because the GI panel I ordered does not appear to of have been processed through the lab and I want to exclude any infectious etiology..? I am also going to get a pancreatic a last taste to see if this is contributing to his diarrhea but in the meantime will start him on some Carafate 2 tabs daily hoping that this is a manifestation of irritable bowel syndrome. I am also concerned because he is losing weight and while he is obese we do not want his nutritional status compromise. It is also possible it is diarrhea secondary to his metformin since this was started about the same time we retreating the Crohn's.? However this does not well explain why he did not have diarrhea for a while for started treatment. I have asked him to the GI panel again and I will see him in 2 weeks to see how he is doing on the Carafate. (2) Crohn's colitis: ?Code(s): K50.10 - Crohn's disease of large intestine without complications (3) ROMO (nonalcoholic steatohepatitis): ?Comment: BASELINE Laboratory Tests ?11/28/20 Estimated GFR > 60 Ferritin 56 Total Bilirubin 0.6 Direct Bilirubin 0.2 AST 15 ALT 20 Alkaline Phosphatase 58 Alpha Fetoprotein 1.6 Anti-Mitochondrial Ab NEGATIVE Anti-Smooth Muscle Ab <20 Hepatitis A IgM Ab Nonreactive Hep Bs Antigen Negative Hep Bs Antibody NONREACTIVE Hep B Core Total Ab Nonreactive Hepatitis C Ab (EIA) Nonreactive CURRENT LABS 08/13/2302/ ?[id number]:3609:[id number]:36 WBC 6.8 Hgb 14.2 Hct 43.8 Estimated GFR > 60 Total Bilirubin 0.7 AST 20 ALT 16 Alkaline Phosphatase 77 Alpha Fetoprotein 2.0 ULTRASOUND OF THE ABDOMEN 09/16/22 FINDINGS: PANCREAS: The visible portion of the pancreas appears normal. Most of the pancreas is obscured by bowel gas. LIVER: The liver is normal in size. The liver contour is normal. There is diffuse increased liver parenchymal echogenicity, consistent with hepatic steatosis.? There is a 1.4 cm simple cyst in the posterior right lobe. There is no intrahepatic biliary duct dilatation seen. GALLBLADDER: Cholesterol crystal artifact in the wall the gallbladder consistent with adenomyomatosis. No discrete gallstone. No mural edema or pericholecystic fluid. COMMON BILE DUCT: Normal in caliber measuring 0.2 cm in diameter. RIGHT KIDNEY: Normal. No hydronephrosis. No renal calculi or focal parenchymal lesions. The kidney measures 11.5 cm in maximum dimension. FREE FLUID: None. US/US abdomen limited IMPRESSION: Fatty liver. ?Code(s): K75.81 - Nonalcoholic steatohepatitis (ROMO) ? ? ? Orders: Orders Pancreatic Elastas e-1 Today R19.7 - Diarrhea, unspecified ? Medications: New sucralfate (Carafa te) 2 grams (2 x 1 gra m) PO .qacsupper 6 0 tabs 3RFA ? ? sucralfate (Carafa te) 2 grams (2 x 1 gra m) PO .qacsupper 6 0 tabs 3RF LABS Laboratory Tests 12/28/22 12/31/22 12/31/22 11:45 06:38 12:05 C-Reactive Protein 0.30 Stool Calprotectin 97 Stool Pancreat Catherine stase 489 Laboratory Tests 12/25/22 12/31/22 19:54 06:38 Plt Count 191 Total Bilirubin 0.5 AST 17 ALT 15 Alkaline Phosphata se 89 CORRESPONDENCE On 01/08/23 @ 09:08 Rabia Diaz Wrote To Emily calprotectin 97, patient had f/u today On 01/07/23 @ 09:25 Rabia Diaz Wrote To Emily (2) calprotectin still pending. On 01/05/23 @ 10:13 Rabia Diaz Wrote To EmilyAugust (2) calprotectin still pending. On 01/04/23 @ 15:35 Shayla Eric Wrote To Emily (2) Hi August, patient called x2 left voice messages stating he would like to know his test results allyson, since he was up all night with diarrhea.? (Has F/U 01/08) 2ND Message states he? knows why he is having diarrhea- it is his metformin- seen Endocrine and they are going to change his medication. He stopped his metformin- blood sugar was stable, held 2 doses and no diarrhea and feels great- the best he has felt in about 2months .? I can call him back, if you like? calprotectin - still pending, not sure if he is planning on coming to F/U APPT on 01/08. TODAYS VISIT He is feeling much better since he stopped metformin!! He is having solid bowels and his fatigue and lethargy have resolved. He is now on Jardiance. He is doing well on this and his monitored BS have been very well controlled - the highest in the 116 area. HE is now satisfied with his GI regimen. He continues on Humira, is no longer taking sucralfate, and all of his labs appear to show good control of his Crohn's disease. The fecal calprotectin is very mildly elevated which could be from irritation from the metformin and we will continue the same treatment and check this again a later date. ROV 6 mos PFSH Medical History Diverticulitis Surgical History History of right hip replacement Hx of colonoscopy Family History Mother Diabetes Breast cancer, Onset Age: 74 Social History Alcohol intake: current Alcohol intake frequency: does not drink Patient Tobacco Use Status: Never used Tobacco Second Hand Smoke Exposure: No Review of Systems Const Denies fatigue, Denies fever(s), Denies night sweats, Denies poor appetite and Reports weight loss Eyes Details: Glasses Reports requires corrective lenses ENT Reports Normal hearing present, Denies dental pain, Denies dysphagia, Denies hearing loss, Denies mouth pain, Denies odynophagia, Denies throat swelling, Denies tongue swelling and Reports other (Dentition adequate) Card Reports no additional complaints Resp Reports no additional complaints GI Denies abdominal pain, Denies melena, Denies bloating, Denies hematochezia, Denies constipation, Denies GI cramping, Denies dysphagia, Denies excessive flatus, Denies early satiety, Denies heartburn, Denies diarrhea, Denies nausea, Denies odynophagia, Denies vomiting and Denies hematemesis Musc Reports back pain Skin/Breast Denies pruritus, Denies lesions, Denies rash and Denies jaundice Neuro Reports Normal hearing present and Denies Abnormal speech present Endo Denies fatigue Aller/Immun Denies throat swelling and Denies tongue swelling Physical Exam Vital Signs: Last Vital Signs Pulse 84 01/08/23 09:00 BP 124/69 01/08/23 09:00 BMI result Body Mass Index 34.8 Const General: cooperative, no acute distress, well developed and well groomed Nutritional Appearance: well nourished and obese Orientation/consciousness: oriented to person, oriented to place and oriented to time Limitations: No language barrier HEENT Head: Yes normocephalic and Yes atraumatic Eyes General: appearance normal, both eyes and all related structures Pupils: Equal, round and reactive pupils present Neck Neck: Yes normal visual inspection and Yes no lymphadenopathy Thyroid: Thyroid normal Resp Effort & Inspection: normal respiratory effort and able to speak in complete sentences Auscultation: clear to auscultation bilaterally Cardio Rate: regular rate Rhythm: regular rhythm Heart sounds: Normal, physiologic split S2 sound present Peripheral pulses: radial pulses present and posterior tibial pulses present GI Inspection: No distended, Yes Abdominal panniculus present and Yes obesity Palpation (GI): Soft to palpation, nontender, no guarding, not rigid and No hepatosplenomegaly present Percussion: Yes normal to percussion Auscultation: normal bowel sounds Rectal Exam - Male: Yes deferred Skin General skin exam: no rashes or lesions noted, turgor normal, skin not dry, no jaundice, No spider nevi and no striae Rashes: no rashes Nails: normal Neuro General: oriented to person, oriented to place and oriented to time Cranial nerves: Yes Equal, round and reactive pupils present and Yes Normal hearing present Speech: No Abnormal speech present Extrem General: Yes normal to inspection, No clubbing, No cyanosis and No edema Psych Appearance: grossly normal and well kempt Mental Status: mental status grossly normal Speech and movement: Normal speech and movement present Affect: normal affect Attitude: cooperative Thought process: Normal thought process present and not confabulating Thought content: Normal thought content present Insight: Fair insight present (Psych) Judgement: Fair judgement present (Psych) Results Reviewed Results Reviewed: Laboratory Tests 12/28/22 12/31/22 12/31/22 11:45 06:38 12:05 C-Reactive Protein 0.30 Stool Calprotectin 97 Stool Pancreat Elastase 489 Laboratory Tests 12/25/22 12/31/22 19:54 06:38 Plt Count 191 Total Bilirubin 0.5 AST 17 ALT 15 Alkaline Phosphatase 89 Assessment & Plan Assessment & Plan (1) Crohn's colitis: Code(s): K50.10 - Crohn's disease of large intestine without complications Plan: He is feeling much better since he stopped metformin!! He is having solid bowels and his fatigue and lethargy have resolved. He is now on Jardiance. He is doing well on this and his monitored BS have been very well controlled - the highest in the 116 area. HE is now satisfied with his GI regimen. He continues on Humira, is no longer taking sucralfate, and all of his labs appear to show good control of his Crohn's disease. The fecal calprotectin is very mildly elevated which could be from irritation from the metformin and we will continue the same treatment and check this again a later date. Given all of the testing and the troubles I just reviewed the lab work for his ROMO and since his transaminases are normal will put off doing another ultrasound till next visit. Clearly, although is sudden weight loss was concerning it is had a positive affect on his liver function tests. ROV 6 mos (2) Diabetes: Code(s): E11.9 - Type 2 diabetes mellitus without complications (3) ROMO (nonalcoholic steatohepatitis): Comment: BASELINE Laboratory Tests 11/28/20 Estimated GFR > 60 Ferritin 56 Total Bilirubin 0.6 Direct Bilirubin 0.2 AST 15 ALT 20 Alkaline Phosphatase 58 Alpha Fetoprotein 1.6 Anti-Mitochondrial Ab NEGATIVE Anti-Smooth Muscle Ab <20 Hepatitis A IgM Ab Nonreactive Hep Bs Antigen Negative Hep Bs Antibody NONREACTIVE Hep B Core Total Ab Nonreactive Hepatitis C Ab (EIA) Nonreactive CURRENT LABS 12/26/2307/03/23 19:5406:38 Plt Count 191 Total Bilirubin 0.5 AST 17 ALT 15 Alkaline Phosphatase 89 ULTRASOUND OF THE ABDOMEN 09/16/22 FINDINGS: PANCREAS: The visible portion of the pancreas appears normal. Most of the pancreas is obscured by bowel gas. LIVER: The liver is normal in size. The liver contour is normal. There is diffuse increased liver parenchymal echogenicity, consistent with hepatic steatosis.? There is a 1.4 cm simple cyst in the posterior right lobe. There is no intrahepatic biliary duct dilatation seen. GALLBLADDER: Cholesterol crystal artifact in the wall the gallbladder consistent with adenomyomatosis. No discrete gallstone. No mural edema or pericholecystic fluid. COMMON BILE DUCT: Normal in caliber measuring 0.2 cm in diameter. RIGHT KIDNEY: Normal. No hydronephrosis. No renal calculi or focal parenchymal lesions. The kidney measures 11.5 cm in maximum dimension. FREE FLUID: None. US/US abdomen limited IMPRESSION: Fatty liver. Code(s): K75.81 - Nonalcoholic steatohepatitis (ROMO) Medications: Refilled adalimumab (Humira Pen) inject one - 40 mg/0.8 mL pen every 2 weeks subcut 2 ea 6RF K50.10 - Crohn's disease of large intestine without complications Discontinued adalimumab (Humira Pen Crohn's-[facility] Colitis-Hid Sup Starter) Discontinued Reason: Patient Completed Course (0.8 mL) 40 mg subcutaneously q 2 weeks 6 ea 12RF sucralfate (Carafate) Discontinued Reason: Change Referral Type 2 grams (2 x 1 gram) PO .qacsupper 60 tabs 3RF Coding Level of Care Code Est Pt Level 3 (04558) Diagnoses Crohn's colitis K50.10 Diabetes E11.9 ROMO (nonalcoholic steatohepatitis) K75.81
[2023-01-08 09:00] VITALS: BP 124/69; PULSE 84; BMI 34.8
== END 2023-01-08 10:20 | disposition home or self-care (01) ==
PROVIDERS: PCP Family Medicine; Visit Provider Nurse Practitioner
DX: K50.10 Crohn's disease of large intestine without complications (principal); E11.9 Type 2 diabetes mellitus without complications; K75.81 Nonalcoholic steatohepatitis (NASH)
CPT/HCPCS: 99213

== ENCOUNTER → 2023-01-08 08:50 | Outpatient (BNVA) | payer MEDICARE, OTHER, SELFPAY | PROVIDERS: PCP Family Medicine; Visit Provider Nurse Practitioner | DX: K50.10 Crohn's disease of large intestine without complications (principal); E11.9 Type 2 diabetes mellitus without complications; K75.81 Nonalcoholic steatohepatitis (NASH) | CPT/HCPCS: 99212 ==

== ENCOUNTER 2023-01-26 14:55 | Outpatient (AMB) | payer MEDICARE, MEDICAID, SELFPAY ==
--- NOTE | 2023-01-26 15:01 | HO.SPINEOV ---
Intake Intake Visit Reasons: constant lower back pain Intake Note: Mr. Eason is here today c/o constant low back pain. Claims Adjuster Crop Required: No Allergies No Known Allergies Allergy (Verified 01/08/23 09:08) Assessment & Plan Assessment & Plan (1) Peripheral neuropathy: Code(s): G62.9 - Polyneuropathy, unspecified Plan Mr Parks is here in follow-up today. I reviewed his EMG with him which showed a severe axonal and sensory peripheral neuropathy. Symptomatic Carley he seems to have turned the corner and is doing much better although he still has some iliopsoas weakness on my exam, worse on the left. At this point I have no surgical intervention offer, but we did discuss his diabetes and his improved blood sugar control has been probably a major contributor to why he is recovering. He has gone non some better medications recently in his last A1c was 6. We would be glad to see him back down the road if something changes. Total amount of time spent in this visit was 20 minutes in discussion of symptoms, EMG results and subsequent plan of care Elliot Patten MD,PhD [facility] Coding Level of Care Code Est Pt Level 3 (17637) Diagnoses Peripheral neuropathy G62.9
== END 2023-01-26 16:24 | disposition home or self-care (01) ==
PROVIDERS: PCP Family Medicine; Visit Provider Physician Assistant
DX: G62.9 Polyneuropathy, unspecified (principal)
CPT/HCPCS: 99213

== ENCOUNTER → 2023-01-26 14:55 | Outpatient (BNVA) | payer MEDICARE, MEDICAID, SELFPAY | PROVIDERS: PCP Family Medicine; Visit Provider Physician Assistant | DX: G62.9 Polyneuropathy, unspecified (principal) | CPT/HCPCS: 99212 ==

== ENCOUNTER 2023-03-16 14:26 | Outpatient (AMB) | payer MEDICARE, MEDICAID, SELFPAY ==
--- NOTE | 2023-03-16 15:05 | A.SPINEOV_ITS ---
Intake Intake Visit Reasons: discuss treatment and possible MRI Intake Note: Mr. Eason is here today to discuss further treatment and possible MRI. Cellulose Insulation Helper Required: No Allergies No Known Allergies Allergy (Verified 01/08/23 09:08) Assessment & Plan Assessment & Plan (1) Back pain: Code(s): M54.9 - Dorsalgia, unspecified Plan Mr Eason is here in the office today. This is a gentleman who underwent a lumbar surgery with us about a year ago with excellent results and resolution of his radiculopathy. He was in [facility] sometime earlier this year with weakness of his legs and ultimately diagnosed with polyneuropathy and an MRI showing some residual stenosis. We treated him conservatively with tincture of time and his leg strength recovered with the exception of some mild left iliopsoas weakness. He was doing well until a few months ago when he starts it to experience right-sided low back pain. He does not have any radicular pain but he does report some bilateral hip pain. It has been getting steadily worse. The primary symptom is the back pain however. He is taking Tylenol and some Flexeril which seems to help. His leg strength has for the most part recovered with the exception of some mild left iliopsoas weakness. I am going to send him for some physical therapy, and if there is no improvement I will order lumbar MRI and further evaluate. Total amount of time spent in this visit was 20 minutes in discussion of symptoms, ordering imaging and subsequent plan of care Elliot Patten MD,PhD [facility] Orders: Orders PT Evaluation and Treatment Today M54.9 - Dorsalgia, unspecified Coding Level of Care Code Est Pt Level 3 (10786) Diagnoses Back pain M54.9
== END 2023-03-16 15:47 | disposition home or self-care (01) ==
PROVIDERS: PCP Family Medicine; Visit Provider Physician Assistant
DX: M54.9 Dorsalgia, unspecified (principal)
CPT/HCPCS: 99213

== ENCOUNTER → 2023-03-16 14:26 | Outpatient (BNVA) | payer MEDICARE, MEDICAID, SELFPAY | PROVIDERS: PCP Family Medicine; Visit Provider Physician Assistant | DX: M54.9 Dorsalgia, unspecified (principal) | CPT/HCPCS: 99212 ==

== ENCOUNTER 2023-07-09 08:24 | Outpatient (AMB) | payer MEDICARE, MEDICAID, SELFPAY ==
--- NOTE | 2023-07-09 08:40 | A.OFFVIS_ITS ---
Intake Vital Signs 07/09/23 08:48 Height 5 ft 10 in Weight 248 lb BMI 35.6 BP 109/55 L Blood Pressure Location Lt brachial Position Sitting Pulse 89 Intake Visit Reasons: 6 month follow up Intake Note: Patient presents to in office today in 6 months follow up. CC: Patient reports doing very good and denies having any GI concerns today. It Manager Required: No Accompanied by: Self / Same As Patient Allergies No Known Allergies Allergy (Verified 07/09/23 09:00) HPI 6 month follow up HPI Details Assessment & Plan (1) Crohn's colitis: Code(s): K50.10 - Crohn's disease of large intestine without complications Plan: He is feeling much better since he stopped metformin!! He is having solid bowels and his fatigue and lethargy have resolved. He is now on Jardiance. He is doing well on this and his monitored BS have been very well controlled - the highest in the 116 area. HE is now satisfied with his GI regimen. He continues on Humira, is no longer taking sucralfate, and all of his labs appear to show good control of his Crohn's disease. The fecal calprotectin is very mildly elevated which could be from irritation from the metformin and we will continue the same treatment and check this again a later date. Given all of the testing and the troubles I just reviewed the lab work for his ROMO and since his transaminases are normal will put off doing another ultrasound till next visit. Clearly, although is sudden weight loss was concerning it is had a positive affect on his liver function tests. ROV 6 mos (2) Diabetes: Code(s): E11.9 - Type 2 diabetes mellitus without complications (3) ROMO (nonalcoholic steatohepatitis): Comment: BASELINE Laboratory Tests 11/28/20 Estimated GFR > 60 Ferritin 56 Total Bilirubin 0.6 Direct Bilirubin 0.2 AST 15 ALT 20 Alkaline Phosphatase 58 Alpha Fetoprotein 1.6 Anti-Mitochondrial Ab NEGATIVE Anti-Smooth Muscle Ab <20 Hepatitis A IgM Ab Nonreactive Hep Bs Antigen Negative Hep Bs Antibody NONREACTIVE Hep B Core Total Ab Nonreactive Hepatitis C Ab (EIA) Nonreactive CURRENT LABS 12/26/2307/03/23 19:5406:38 Plt Count 191 Total Bilirubin 0.5 AST 17 ALT 15 Alkaline Phosphatase 89 ULTRASOUND OF THE ABDOMEN 09/16/22 FINDINGS: PANCREAS: The visible portion of the pancreas appears normal. Most of the pancreas is obscured by bowel gas. LIVER: The liver is normal in size. The liver contour is normal. There is diffuse increased liver parenchymal echogenicity, consistent with hepatic steatosis.? There is a 1.4 cm simple cyst in the posterior right lobe. There is no intrahepatic biliary duct dilatation seen. GALLBLADDER: Cholesterol crystal artifact in the wall the gallbladder consistent with adenomyomatosis. No discrete gallstone. No mural edema or pericholecystic fluid. COMMON BILE DUCT: Normal in caliber measuring 0.2 cm in diameter. RIGHT KIDNEY: Normal. No hydronephrosis. No renal calculi or focal parenchymal lesions. The kidney measures 11.5 cm in maximum dimension. FREE FLUID: None. US/US abdomen limited IMPRESSION: Fatty liver. Code(s): K75.81 - Nonalcoholic steatohepatitis (ROMO) Medications: Refilled adalimumab (Humira Pen) inject one - 40 m g/0.8 mL pen every 2 weeks subcut 2 ea 6RF K50.10 - Crohn's d isease of large in testine without co mplications Discontinued adalimumab (Humira Pen Crohn's-Ulc C olitis-Hid Sup Sta rter) Discontin ued Reason: Patie nt Completed Cours e (0.8 mL) 40 mg sub cutaneously q 2 we eks 6 ea 12RF sucralfate (Carafa te) Discontinue d Reason: Change Referral Type 2 grams (2 x 1 gra m) PO .qacsupper 6 0 tabs 3RF CORRESPONDENCE On 02/02/23 @ 10:55 Rabia Diaz Wrote To Emily,August patient called and wanted to update you. 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 patient reports he was started on Varianze 10mg they Wednesday/Wednesday prior to last meeting with you in office and wanted you to know that he has been feeling much better, everything is back to normal. patient has been having regular stools x1 daily, appetite is back, etc. patient states he has f/u with you in 6mos and thats when he will see you next so he wanted me to send this update thanking you for all your efforts. thanks! TODAYS VISIT He is generally doing quite well! He has a touch of the flu but it was mild and her recovered quickly. He has a new PCP as his old retired and he will be starting with a new one. His new PCP did blood work to check his WBC's which were normal, and his diabetes control and BP have been well controlled. His Crohns is well controlled and he has had no diarrhea, rectal bleeding, wt loss or malaise. He continues on Humira. He also had a very severe diarrheal reaction to metformin in the past. He is on Jardiance now. Given the prevalence of COVID I again family life counselor Ed to call me if he needs Tamiflu or Paxlovid. Return office visit in 6 months [facility] Medical History Diverticulitis Surgical History History of right hip replacement Hx of colonoscopy Family History Mother Diabetes Breast cancer, Onset Age: 74 Social History Alcohol intake: current Alcohol intake frequency: does not drink Patient Tobacco Use Status: Never used Tobacco Second Hand Smoke Exposure: No Review of Systems Const Denies fatigue, Denies fever(s), Denies night sweats, Denies poor appetite and Denies weight loss Eyes Details: glasses Reports requires corrective lenses ENT Reports Normal hearing present, Denies dental pain, Denies dysphagia, Denies hearing loss, Denies mouth pain, Denies odynophagia, Denies throat swelling, Denies tongue swelling and Reports other (Dentition adequate) Card Reports no additional complaints Resp Reports no additional complaints GI Details: Denies abdominal pain, Denies melena, Denies bloating, Denies hematochezia, Denies constipation, Denies GI cramping, Denies dysphagia, Denies excessive flatus, Denies early satiety, Denies heartburn, Denies diarrhea, Denies nausea, Denies odynophagia, Denies vomiting and Denies hematemesis Skin/Breast Denies pruritus, Denies lesions, Denies rash and Denies jaundice Neuro Reports Normal hearing present and Denies Abnormal speech present Endo Denies fatigue Aller/Immun Denies throat swelling and Denies tongue swelling Physical Exam Vital Signs: Last Vital Signs Pulse 89 07/09/23 08:48 BP 109/55 L 07/09/23 08:48 BMI result Body Mass Index 35.6 Const General: cooperative, no acute distress, well developed and well groomed Nutritional Appearance: well nourished and obese morbidly obese Orientation/consciousness: oriented to person, oriented to place and oriented to time Limitations: No language barrier HEENT Head: Yes normocephalic and Yes atraumatic Eyes General: appearance normal, both eyes and all related structures Pupils: Equal, round and reactive pupils present Neck Neck: Yes normal visual inspection and Yes no lymphadenopathy Thyroid: Thyroid normal Resp Effort & Inspection: normal respiratory effort and able to speak in complete sentences Auscultation: clear to auscultation bilaterally Cardio Rate: regular rate Rhythm: regular rhythm Heart sounds: Normal, physiologic split S2 sound present Peripheral pulses: radial pulses present and posterior tibial pulses present GI Inspection: No distended, Yes Abdominal panniculus present and Yes obesity Palpation (GI): Soft to palpation, nontender, no guarding, not rigid and No hepatosplenomegaly present Percussion: Yes normal to percussion Auscultation: normal bowel sounds Rectal Exam - Male: Yes deferred Skin General skin exam: no rashes or lesions noted, turgor normal, skin not dry, no jaundice, No spider nevi and no striae Rashes: no rashes Nails: normal Neuro General: oriented to person, oriented to place and oriented to time Cranial nerves: Yes Equal, round and reactive pupils present and Yes Normal hearing present Speech: No Abnormal speech present Extrem General: Yes normal to inspection, No clubbing, No cyanosis and No edema Psych Appearance: grossly normal and well kempt Mental Status: mental status grossly normal Speech and movement: Normal speech and movement present Affect: normal affect Attitude: cooperative Thought process: Normal thought process present and not confabulating Thought content: Normal thought content present Insight: Good insight present (Psych) Judgement: Good judgement present (Psych) Assessment & Plan Assessment & Plan (1) Crohn's colitis: Code(s): K50.10 - Crohn's disease of large intestine without complications (2) ROMO (nonalcoholic steatohepatitis): Comment: BASELINE Laboratory Tests 11/28/20 Estimated GFR > 60 Ferritin 56 Total Bilirubin 0.6 Direct Bilirubin 0.2 AST 15 ALT 20 Alkaline Phosphatase 58 Alpha Fetoprotein 1.6 Anti-Mitochondrial Ab NEGATIVE Anti-Smooth Muscle Ab <20 Hepatitis A IgM Ab Nonreactive Hep Bs Antigen Negative Hep Bs Antibody NONREACTIVE Hep B Core Total Ab Nonreactive Hepatitis C Ab (EIA) Nonreactive CURRENT LABS 12/26/2307/03/23 19:5406:38 Plt Count 191 Total Bilirubin 0.5 AST 17 ALT 15 Alkaline Phosphatase 89 ULTRASOUND OF THE ABDOMEN 09/16/22 FINDINGS: PANCREAS: The visible portion of the pancreas appears normal. Most of the pancreas is obscured by bowel gas. LIVER: The liver is normal in size. The liver contour is normal. There is diffuse increased liver parenchymal echogenicity, consistent with hepatic steatosis.? There is a 1.4 cm simple cyst in the posterior right lobe. There is no intrahepatic biliary duct dilatation seen. GALLBLADDER: Cholesterol crystal artifact in the wall the gallbladder consistent with adenomyomatosis. No discrete gallstone. No mural edema or pericholecystic fluid. COMMON BILE DUCT: Normal in caliber measuring 0.2 cm in diameter. RIGHT KIDNEY: Normal. No hydronephrosis. No renal calculi or focal parenchymal lesions. The kidney measures 11.5 cm in maximum dimension. FREE FLUID: None. US/US abdomen limited IMPRESSION: Fatty liver. Code(s): K75.81 - Nonalcoholic steatohepatitis (ROMO) Plan He is generally doing quite well! He has a touch of the flu but it was mild and her recovered quickly. He has a new PCP as his old retired and he will be starting with a new one. His new PCP did blood work to check his WBC's which were normal, and his diabetes control and BP have been well controlled. His Crohns is well controlled and he has had no diarrhea, rectal bleeding, wt loss or malaise. He continues on Humira. He also had a very severe diarrheal reaction to metformin in the past. He is on Jardiance now. Given the prevalence of COVID I again family life counselor Ed to call me if he needs Tamiflu or Paxlovid. Return office visit in 6 months Medications: Refilled adalimumab (Humira Pen) inject one - 40 mg/0.8 mL pen every 2 weeks subcut 2 ea 6RF K50.10 - Crohn's disease of large intestine without complications Coding Level of Care Code Est Pt Level 3 (68757) Diagnoses Crohn's colitis K50.10 ROMO (nonalcoholic steatohepatitis) K75.81
[2023-07-09 08:48] VITALS: BP 109/55; PULSE 89; BMI 35.6
== END 2023-07-09 10:36 | disposition home or self-care (01) ==
PROVIDERS: PCP Family Medicine; Visit Provider Nurse Practitioner
DX: K50.10 Crohn's disease of large intestine without complications (principal); K75.81 Nonalcoholic steatohepatitis (NASH)
CPT/HCPCS: 99213

== ENCOUNTER → 2023-07-09 08:24 | Outpatient (BNVA) | payer MEDICARE, OTHER, SELFPAY | PROVIDERS: PCP Family Medicine; Visit Provider Nurse Practitioner | DX: K50.10 Crohn's disease of large intestine without complications (principal); K75.81 Nonalcoholic steatohepatitis (NASH) | CPT/HCPCS: 99212 ==

== ENCOUNTER 2023-10-08 11:24 | Outpatient (AMB) | payer MEDICARE, MEDICAID, SELFPAY ==
--- NOTE | 2023-10-08 12:19 | A.SPINEOV_ITS ---
Intake Visit Reasons: fracture lower lumbar region Intake Note: Mr. Eason is here today c/o lower back pain. Custodian Manager Required: No Allergies No Known Allergies Allergy (Verified 10/08/23 12:22) Assessment & Plan Assessment & Plan (1) Back pain: Code(s): M54.9 - Dorsalgia, unspecified Category: Medical Plan Mr Eason is following up in the office today. This is a gentleman well known to us from a lumbar decompression done 1 or [address] [facility]. We have been following him from time to time for back issues. He was recently in the emergency room with an episode of diverticulitis, but on the CT scan done showed evidence of compression fracture at L1. There was subsequent follow-up MRI showing evidence of some STIR sequence hyperintensity at L1 so we wanted to follow-up to see if there was anything needed to be done for this. I reviewed the MRI done in [facility], and indeed it does show that there is some STIR intensity at the L1 upper endplate area, I suspect this is a healing or almost healed fracture of the L1 vertebral body consistent with a compression fracture. He did have a fall sometime over the winter and I suspect that this is run its course. He had pain in his back for a few days after that fall but then it just reverted back to his usual chronic low back pain in the lumbosacral region. There is nothing to be done for this, he does not have any restrictions. And there is no signs of any instability here. He needs no further follow-up for it. He can continue with the conservative management of his chronic low back pain from his degenerative disc disease. Total amount of time spent in this visit was 20 minutes in discussion of symptoms, lumbar imaging results and subsequent plan of care Elliot Patten MD,PhD [facility] Coding Level of Care Code Est Pt Level 3 (92683) Diagnoses Back pain M54.9
== END 2023-10-08 12:55 | disposition home or self-care (01) ==
PROVIDERS: PCP Family Medicine; Visit Provider Physician Assistant
DX: M54.9 Dorsalgia, unspecified (principal)
CPT/HCPCS: 99213

== ENCOUNTER → 2023-10-08 11:24 | Outpatient (BNVA) | payer MEDICARE, MEDICAID, SELFPAY | PROVIDERS: PCP Family Medicine; Visit Provider Physician Assistant | DX: M54.9 Dorsalgia, unspecified (principal) | CPT/HCPCS: 99212 ==

== ENCOUNTER 2024-02-23 11:00 | Outpatient (AMB) | payer MEDICARE, MEDICAID, SELFPAY ==
--- NOTE | 2024-02-23 11:01 | MHC.OFFVIS ---
Vital Signs 02/23/24 11:02 Height 5 ft 10 in Weight 250 lb BMI 35.9 BP 145/70 H Blood Pressure Location Lt brachial Position Sitting Pulse 99 Intake Visit Reasons: 6 month follow up Intake Note: Edward returns in 6 months follow up of Chron's colitis. CC: Patient reports that he has been doing well with ther Humira. Dermatology Teacher Required: No Accompanied by: Self / Same As Patient Allergies No Known Allergies Allergy (Verified 02/23/24 11:05) HPI HPI 6 month follow up: Details: Assessment & Plan (1) Crohn's colitis: Code(s): K50.10 - Crohn's disease of large intestine without complications (2) ROMO (nonalcoholic steatohepatitis): Comment: BASELINE Laboratory Tests 11/28/20 Estimated GFR > 60 Ferritin 56 Total Bilirubin 0.6 Direct Bilirubin 0.2 AST 15 ALT 20 Alkaline Phosphatase 58 Alpha Fetoprotein 1.6 Anti-Mitochondrial Ab NEGATIVE Anti-Smooth Muscle Ab <20 Hepatitis A IgM Ab Nonreactive Hep Bs Antigen Negative Hep Bs Antibody NONREACTIVE Hep B Core Total Ab Nonreactive Hepatitis C Ab (EIA) Nonreactive CURRENT LABS 12/26/2307/03/23 19:5406:38 Plt Count 191 Total Bilirubin 0.5 AST 17 ALT 15 Alkaline Phosphatase 89 ULTRASOUND OF THE ABDOMEN 09/16/22 FINDINGS: PANCREAS: The visible portion of the pancreas appears normal. Most of the pancreas is obscured by bowel gas. LIVER: The liver is normal in size. The liver contour is normal. There is diffuse increased liver parenchymal echogenicity, consistent with hepatic steatosis.? There is a 1.4 cm simple cyst in the posterior right lobe. There is no intrahepatic biliary duct dilatation seen. GALLBLADDER: Cholesterol crystal artifact in the wall the gallbladder consistent with adenomyomatosis. No discrete gallstone. No mural edema or pericholecystic fluid. COMMON BILE DUCT: Normal in caliber measuring 0.2 cm in diameter. RIGHT KIDNEY: Normal. No hydronephrosis. No renal calculi or focal parenchymal lesions. The kidney measures 11.5 cm in maximum dimension. FREE FLUID: None. US/US abdomen limited IMPRESSION: Fatty liver. Code(s): K75.81 - Nonalcoholic steatohepatitis (ROMO) Plan He is generally doing quite well! He has a touch of the flu but it was mild and her recovered quickly. He has a new PCP as his old retired and he will be starting with a new one. His new PCP did blood work to check his WBC's which were normal, and his diabetes control and BP have been well controlled. His Crohns is well controlled and he has had no diarrhea, rectal bleeding, wt loss or malaise. He continues on Humira. He also had a very severe diarrheal reaction to metformin in the past. He is on Jardiance now. Given the prevalence of COVID I again rehab/pre vocational counselor Ed to call me if he needs Tamiflu or Paxlovid. Return office visit in 6 months Medications: Refilled adalimumab (Humira Pen) inject one - 40 mg/0.8 mL pen every 2 weeks subcut 2 ea 6RF K50.10 - Crohn's disease of large intestine without complications CORRESPONDENCE On 09/06/23 @ 09:40 Rabia Diaz Wrote To Zoya Diaz patient called to notify that has was recently in the ED for a diverticulitis flare. I scanned notes and CT scan results in the chart. patient states he is doing better and will call with any issues. TODAYS VISIT He is doing very well on his Humira. He recently had a shoulder injection in the left shoulder and is doing well. His diabetes is well controlled on his Jardiance. ROV 6 mos. [facility] Medical History (Updated 02/23/24 @ 11:25 by JONATHAN Leo) Acute diarrhea Diverticulitis Rectal cyst Sepsis Surgical History History of right hip replacement Hx of colonoscopy Family History Mother Diabetes Breast cancer, Onset Age: 74 Social History Alcohol intake: current Alcohol intake frequency: does not drink Patient Tobacco Use Status: Never used Tobacco Second Hand Smoke Exposure: No Review of Systems Const Denies fatigue, Denies fever(s), Denies night sweats, Denies poor appetite and Denies weight loss Eyes Details: glasses Reports requires corrective lenses ENT Reports Normal hearing present, Denies dental pain, Denies dysphagia, Denies hearing loss, Denies mouth pain, Denies odynophagia, Denies throat swelling, Denies tongue swelling and Reports other (Dentition adequate) Card Reports no additional complaints Resp Reports no additional complaints GI Details: Denies abdominal pain, Denies melena, Denies bloating, Denies hematochezia, Denies constipation, Denies GI cramping, Denies dysphagia, Denies excessive flatus, Denies early satiety, Denies heartburn, Denies diarrhea, Denies nausea, Denies odynophagia, Denies vomiting and Denies hematemesis Skin/Breast Denies pruritus, Denies lesions, Denies rash and Denies jaundice Neuro Reports Normal hearing present and Denies Abnormal speech present Endo Denies fatigue Aller/Immun Denies throat swelling and Denies tongue swelling Physical Exam Vital Signs: Last Vital Signs Pulse 99 02/23/24 11:02 BP 145/70 H 02/23/24 11:02 BMI result Body Mass Index 35.9 Const General: cooperative, no acute distress, well developed and well groomed Nutritional Appearance: well nourished and obese morbidly obese Orientation/consciousness: oriented to person, oriented to place and oriented to time Limitations: No language barrier HEENT Head: Yes normocephalic and Yes atraumatic Eyes General: appearance normal, both eyes and all related structures Pupils: Equal, round and reactive pupils present Neck Neck: Yes normal visual inspection and Yes no lymphadenopathy Thyroid: Thyroid normal Resp Effort & Inspection: normal respiratory effort and able to speak in complete sentences Auscultation: clear to auscultation bilaterally Cardio Rate: regular rate Rhythm: regular rhythm Heart sounds: Normal, physiologic split S2 sound present Peripheral pulses: radial pulses present and posterior tibial pulses present GI Inspection: No distended, Yes Abdominal panniculus present and Yes obesity Palpation (GI): Soft to palpation, nontender, no guarding, not rigid and No hepatosplenomegaly present Percussion: Yes normal to percussion Auscultation: normal bowel sounds Rectal Exam - Male: Yes deferred Skin General skin exam: no rashes or lesions noted, turgor normal, skin not dry, no jaundice, No spider nevi and no striae Rashes: no rashes Nails: normal Neuro General: oriented to person, oriented to place and oriented to time Cranial nerves: Yes Equal, round and reactive pupils present and Yes Normal hearing present Speech: No Abnormal speech present Extrem General: Yes normal to inspection, No clubbing, No cyanosis and No edema Psych Appearance: grossly normal and well kempt Mental Status: mental status grossly normal Speech and movement: Normal speech and movement present Affect: normal affect Attitude: cooperative Thought process: Normal thought process present and not confabulating Thought content: Normal thought content present Insight: Good insight present (Psych) Judgement: Good judgement present (Psych) Assessment & Plan Assessment & Plan (1) Crohn's colitis: Code(s): K50.10 - Crohn's disease of large intestine without complications Category: Medical (2) ROMO (nonalcoholic steatohepatitis): Comment: BASELINE Laboratory Tests 11/28/20 Estimated GFR > 60 Ferritin 56 Total Bilirubin 0.6 Direct Bilirubin 0.2 AST 15 ALT 20 Alkaline Phosphatase 58 Alpha Fetoprotein 1.6 Anti-Mitochondrial Ab NEGATIVE Anti-Smooth Muscle Ab <20 Hepatitis A IgM Ab Nonreactive Hep Bs Antigen Negative Hep Bs Antibody NONREACTIVE Hep B Core Total Ab Nonreactive Hepatitis C Ab (EIA) Nonreactive CURRENT LABS 12/26/2307/03/23 19:5406:38 Plt Count 191 Total Bilirubin 0.5 AST 17 ALT 15 Alkaline Phosphatase 89 ULTRASOUND OF THE ABDOMEN 09/16/22 FINDINGS: PANCREAS: The visible portion of the pancreas appears normal. Most of the pancreas is obscured by bowel gas. LIVER: The liver is normal in size. The liver contour is normal. There is diffuse increased liver parenchymal echogenicity, consistent with hepatic steatosis.? There is a 1.4 cm simple cyst in the posterior right lobe. There is no intrahepatic biliary duct dilatation seen. GALLBLADDER: Cholesterol crystal artifact in the wall the gallbladder consistent with adenomyomatosis. No discrete gallstone. No mural edema or pericholecystic fluid. COMMON BILE DUCT: Normal in caliber measuring 0.2 cm in diameter. RIGHT KIDNEY: Normal. No hydronephrosis. No renal calculi or focal parenchymal lesions. The kidney measures 11.5 cm in maximum dimension. FREE FLUID: None. US/US abdomen limited IMPRESSION: Fatty liver. Code(s): K75.81 - Nonalcoholic steatohepatitis (ROMO) Category: Medical Plan He is doing very well on his Humira. He recently had a shoulder injection in the left shoulder and is doing well. His diabetes is well controlled on his Jardiance. He declines to do further testing at this time for his although this would be greatly improved with good diabetes control. Will reconsider this in the future. ROV 6 mos. Coding Level of Care Code Est Pt Level 3 (30487) Diagnoses Crohn's colitis K50.10 ROMO (nonalcoholic steatohepatitis) K75.81
[2024-02-23 11:02] VITALS: BP 145/70; PULSE 99; BMI 35.9
== END 2024-02-23 12:07 | disposition home or self-care (01) ==
PROVIDERS: PCP Family Medicine; Visit Provider Nurse Practitioner
DX: K50.10 Crohn's disease of large intestine without complications (principal); K75.81 Nonalcoholic steatohepatitis (NASH)
CPT/HCPCS: 99213

== ENCOUNTER → 2024-02-23 11:00 | Outpatient (BNVA) | payer MEDICARE, OTHER, SELFPAY | PROVIDERS: PCP Family Medicine; Visit Provider Nurse Practitioner | DX: K50.10 Crohn's disease of large intestine without complications (principal); K75.81 Nonalcoholic steatohepatitis (NASH) | CPT/HCPCS: 99212 ==

== ENCOUNTER 2024-08-22 09:09 | Outpatient (AMB) | payer MEDICARE, MEDICAID, SELFPAY ==
--- NOTE | 2024-08-22 09:19 | MHC.OFFVIS ---
Vital Signs 08/22/24 09:20 Height 5 ft 10 in Weight 246 lb BMI 35.3 BP 128/66 Blood Pressure Location Lt brachial Position Sitting Pulse 95 Intake Visit Reasons: Crohns Intake Note: Naveed returns to in office follow up of Chron's disease. CC: Patient reports doing well from GI standpoint. He reports that he is back on insulin after receiving cortiscosteroid injections for his shoulders. Dermatology Procedural Physician Required: No Accompanied by: Self / Same As Patient Allergies No Known Allergies Allergy (Verified 08/22/24 09:39) HPI HPI Crohns: Details: Assessment & Plan (1) Crohn's colitis: Code(s): K50.10 - Crohn's disease of large intestine without complications Category: Medical (2) ROMO (nonalcoholic steatohepatitis): Comment: BASELINE Laboratory Tests 11/28/20 Estimated GFR > 60 Ferritin 56 Total Bilirubin 0.6 Direct Bilirubin 0.2 AST 15 ALT 20 Alkaline Phosphatase 58 Alpha Fetoprotein 1.6 Anti-Mitochondrial Ab NEGATIVE Anti-Smooth Muscle Ab <20 Hepatitis A IgM Ab Nonreactive Hep Bs Antigen Negative Hep Bs Antibody NONREACTIVE Hep B Core Total Ab Nonreactive Hepatitis C Ab (EIA) Nonreactive CURRENT LABS 12/26/2307/03/23 19:5406:38 Plt Count 191 Total Bilirubin 0.5 AST 17 ALT 15 Alkaline Phosphatase 89 ULTRASOUND OF THE ABDOMEN 09/16/22 FINDINGS: PANCREAS: The visible portion of the pancreas appears normal. Most of the pancreas is obscured by bowel gas. LIVER: The liver is normal in size. The liver contour is normal. There is diffuse increased liver parenchymal echogenicity, consistent with hepatic steatosis.? There is a 1.4 cm simple cyst in the posterior right lobe. There is no intrahepatic biliary duct dilatation seen. GALLBLADDER: Cholesterol crystal artifact in the wall the gallbladder consistent with adenomyomatosis. No discrete gallstone. No mural edema or pericholecystic fluid. COMMON BILE DUCT: Normal in caliber measuring 0.2 cm in diameter. RIGHT KIDNEY: Normal. No hydronephrosis. No renal calculi or focal parenchymal lesions. The kidney measures 11.5 cm in maximum dimension. FREE FLUID: None. US/US abdomen limited IMPRESSION: Fatty liver. Code(s): K75.81 - Nonalcoholic steatohepatitis (ROMO) Category: Medical Plan He is doing very well on his Humira. He recently had a shoulder injection in the left shoulder and is doing well. His diabetes is well controlled on his Jardiance. He declines to do further testing at this time for his although this would be greatly improved with good diabetes control. Will reconsider this in the future. ROV 6 mos. TODAYS VISIT He continues to do well on the Humira, however he is back on insulin because he has severe degeneration of both shoulder and has been receiving cortisone injections. He just had an MRI and will be having surgery at some point with [facility]. He is overdue for ROMO monitoring. He is agreeable to having repeat labs and an US. He has a hx of TICS and had a recent flair of LLQ pain. He presented to [facility] but he waited for many hours until the early am hours so he left. I will give him an RX for augmentin to keep on hand for any exacerbations as this has a predictable course with many ER visits over many years and it always resolves with augmentin. [facility] will be his new pharmacy. Return office visit in 6 month [facility] Medical History (Updated 08/22/24 @ 10:11 by JONATHAN Leo) Diverticulitis Acute diarrhea Rectal cyst Sepsis Surgical History History of right hip replacement Hx of colonoscopy Family History Mother Diabetes Breast cancer, Onset Age: 74 Social History Alcohol intake: current Alcohol intake frequency: does not drink Patient Tobacco Use Status: Never used Tobacco Second Hand Smoke Exposure: No Review of Systems Const Denies fatigue, Denies fever(s), Denies night sweats, Denies poor appetite and Reports weight loss Eyes Details: glasses Reports requires corrective lenses ENT Reports Normal hearing present, Denies dental pain, Denies dysphagia, Denies hearing loss, Denies mouth pain, Denies odynophagia, Denies throat swelling, Denies tongue swelling and Reports other (Dentition adequate) Card Reports no additional complaints Resp Reports no additional complaints GI Details: Reports abdominal pain, Denies melena, Denies bloating, Denies hematochezia, Denies constipation, Denies GI cramping, Denies dysphagia, Denies excessive flatus, Denies early satiety, Denies heartburn, Denies diarrhea, Denies nausea, Denies odynophagia, Denies vomiting and Denies hematemesis Musc Reports arthralgias, Reports limited range of motion and Reports muscle weakness (Shoulders) Skin/Breast Denies pruritus, Denies lesions, Denies rash and Denies jaundice Neuro Reports Normal hearing present and Denies Abnormal speech present Endo Denies fatigue Aller/Immun Denies throat swelling and Denies tongue swelling Physical Exam Vital Signs: Last Vital Signs Pulse 95 08/22/24 09:20 BP 128/66 08/22/24 09:20 BMI result Body Mass Index 35.3 Const General: cooperative, no acute distress, well developed and well groomed Nutritional Appearance: well nourished and obese Orientation/consciousness: oriented to person, oriented to place and oriented to time Limitations: No language barrier HEENT Head: Yes normocephalic and Yes atraumatic Eyes General: appearance normal, both eyes and all related structures Pupils: Equal, round and reactive pupils present Neck Neck: Yes normal visual inspection and Yes no lymphadenopathy Thyroid: Thyroid normal Resp Effort & Inspection: normal respiratory effort and able to speak in complete sentences Auscultation: clear to auscultation bilaterally Cardio Rate: regular rate Rhythm: regular rhythm Heart sounds: Normal, physiologic split S2 sound present Peripheral pulses: radial pulses present and posterior tibial pulses present GI Inspection: No distended, No Abdominal panniculus present and Yes obesity Palpation (GI): Soft to palpation, Tenderness to palpation present (GI) in the LLQ, no guarding, not rigid and No hepatosplenomegaly present Percussion: Yes normal to percussion Auscultation: normal bowel sounds Rectal Exam - Male: Yes deferred Skin General skin exam: no rashes or lesions noted, turgor normal, skin not dry, no jaundice, No spider nevi and no striae Rashes: no rashes Nails: normal Neuro General: oriented to person, oriented to place and oriented to time Cranial nerves: Yes Equal, round and reactive pupils present and Yes Normal hearing present Speech: No Abnormal speech present Extrem General: Yes normal to inspection, No clubbing, No cyanosis and No edema Psych Appearance: grossly normal and well kempt Mental Status: mental status grossly normal Speech and movement: Normal speech and movement present Affect: normal affect Attitude: cooperative Thought process: Normal thought process present and not confabulating Thought content: Normal thought content present Insight: Good insight present (Psych) Judgement: Good judgement present (Psych) Assessment & Plan Assessment & Plan (1) Crohn's colitis: Code(s): K50.10 - Crohn's disease of large intestine without complications Category: Medical (2) ROMO (nonalcoholic steatohepatitis): Comment: BASELINE Laboratory Tests 11/28/20 Estimated GFR > 60 Ferritin 56 Total Bilirubin 0.6 Direct Bilirubin 0.2 AST 15 ALT 20 Alkaline Phosphatase 58 Alpha Fetoprotein 1.6 Anti-Mitochondrial Ab NEGATIVE Anti-Smooth Muscle Ab <20 Hepatitis A IgM Ab Nonreactive Hep Bs Antigen Negative Hep Bs Antibody NONREACTIVE Hep B Core Total Ab Nonreactive Hepatitis C Ab (EIA) Nonreactive CURRENT LABS 12/26/2307/03/23 19:5406:38 Plt Count 191 Total Bilirubin 0.5 AST 17 ALT 15 Alkaline Phosphatase 89 ULTRASOUND OF THE ABDOMEN 09/16/22 FINDINGS: PANCREAS: The visible portion of the pancreas appears normal. Most of the pancreas is obscured by bowel gas. LIVER: The liver is normal in size. The liver contour is normal. There is diffuse increased liver parenchymal echogenicity, consistent with hepatic steatosis.? There is a 1.4 cm simple cyst in the posterior right lobe. There is no intrahepatic biliary duct dilatation seen. GALLBLADDER: Cholesterol crystal artifact in the wall the gallbladder consistent with adenomyomatosis. No discrete gallstone. No mural edema or pericholecystic fluid. COMMON BILE DUCT: Normal in caliber measuring 0.2 cm in diameter. RIGHT KIDNEY: Normal. No hydronephrosis. No renal calculi or focal parenchymal lesions. The kidney measures 11.5 cm in maximum dimension. FREE FLUID: None. US/US abdomen limited IMPRESSION: Fatty liver. Code(s): K75.81 - Nonalcoholic steatohepatitis (ROMO) Category: Medical (3) Diverticulitis: Code(s): K57.92 - Diverticulitis of intestine, part unspecified, without perforation or abscess without bleeding Category: Medical Plan He continues to do well on the Humira, however he is back on insulin because he has severe degeneration of both shoulder and has been receiving cortisone injections. He just had an MRI and will be having surgery at some point with [facility]. He is overdue for ROMO monitoring. He is agreeable to having repeat labs and an US. He has a hx of TICS and had a recent flair of LLQ pain. He presented to [facility] but he waited for many hours until the early am hours so he left. I will give him an RX for augmentin to keep on hand for any exacerbations as this has a predictable course with many ER visits over many years and it always resolves with augmentin. [facility] will be his new pharmacy. Return office visit in 6 month Orders: Orders Complete Blood Count Auto Diff Today K50.10 - Crohn's disease of large intestine without complications, K75.81 - Nonalcoholic steatohepatitis (ROMO) Comprehensive Met. Panel Today K50.10 - Crohn's disease of large intestine without complications, K75.81 - Nonalcoholic steatohepatitis (ROMO) US abdomen thakur w elastography Today K50.10 - Crohn's disease of large intestine without complications, K75.81 - Nonalcoholic steatohepatitis (ROMO) C Reactive Protein Today K50.10 - Crohn's disease of large intestine without complications Medications: New amoxicillin-pot clavulanate 875-125 mg 1 tab PO BID 28 tabs 0RF 14 days K57.92 - Diverticulitis of intestine, part unspecified, without perforation or abscess without bleeding amoxicillin-pot clavulanate 875-125 mg 1 tab PO BID 14 days 28 tabs 0RF K57.92 - Diverticulitis of intestine, part unspecified, without perforation or abscess without bleeding Coding Level of Care Code Est Pt Level 3 (04486) Diagnoses Crohn's colitis K50.10 ROMO (nonalcoholic steatohepatitis) K75.81 Diverticulitis K57.92
[2024-08-22 09:20] VITALS: BP 128/66; PULSE 95; BMI 35.3
== END 2024-08-22 10:21 | disposition home or self-care (01) ==
LOC: HO.HGI 09:10
PROVIDERS: PCP Family Medicine; Visit Provider Nurse Practitioner
DX: K50.10 Crohn's disease of large intestine without complications (principal); K75.81 Nonalcoholic steatohepatitis (NASH); K57.92 Diverticulitis of intestine, part unspecified, without perforation or abscess without bleeding
CPT/HCPCS: 99213

== ENCOUNTER → 2024-08-22 09:09 | Outpatient (BNVA) | payer MEDICARE, OTHER, SELFPAY | PROVIDERS: PCP Family Medicine; Visit Provider Nurse Practitioner | DX: K75.81 Nonalcoholic steatohepatitis (NASH) (principal); K57.92 Diverticulitis of intestine, part unspecified, without perforation or abscess without bleeding; K50.10 Crohn's disease of large intestine without complications | CPT/HCPCS: 99212 ==

== ENCOUNTER 2024-10-03 08:24 | Outpatient (REF) | payer MEDICARE, MEDICAID, SELFPAY ==
--- NOTE | ~2024-10-03 | US_ITS ---
EXAMINATION: US ABDOMEN LIMITED WITH LIVER ELASTOGRAPHY HISTORY: K75.81 - Nonalcoholic steatohepatitis (ROMO) TECHNIQUE: Real-time grayscale ultrasound imaging of the right upper quadrant was performed and images were reviewed. COMPARISON: Comparison is made with the prior examination dated 09/10/2022. FINDINGS: Liver: The right lobe of the liver measures 18.2 cm in size. The left lobe of the liver measures 12.2 cm in size. The liver demonstrates increased echotexture, consistent with steatosis. No focal mass or intrahepatic biliary ductal dilatation is identified. There is normal hepatopedal flow in the portal vein. Ultrasound elastography of the liver was performed with 10 separate measurements of the liver parenchyma with the patient in the supine position. Measurements were obtained approximately 2 cm below Barbara's capsule and perpendicular to the capsule. Images are of satisfactory quality. The median shear wave velocity is 1.14 m/s. The interquartile range/median (IQR/median) is 0.26. Gallbladder and biliary tree: The gallbladder is unremarkable, without evidence of calculi, wall thickening, or pericholecystic fluid. There is no sonographic Genao sign. The common bile duct is not visualized. Right Kidney: The right kidney measures 11.6 cm in length. The right kidney is unremarkable, without evidence of masses, hydronephrosis, or calculi. Pancreas: The pancreatic head, neck, and body are unremarkable. The pancreatic tail is obscured by bowel gas. Abdominal aorta and inferior vena cava: The visualized portions of the abdominal aorta and inferior vena cava are normal in caliber. There is no free fluid in the right upper quadrant. US/US abdomen thakur w elastography IMPRESSION: Hepatomegaly and hepatic steatosis. The median shear wave velocity in the liver is 1.14 m/s, corresponding to a median liver stiffness of 3.9 kPa. The IQR/median value is 0.26. This is indicative of a quality data set. Findings are indicative of a normal elastography value with a low likelihood of severe fibrosis or cirrhosis. REFERENCE: Society of Radiologists in Ultrasound Liver Stiffness Thresholds (2019): LIVER STIFFNESS THRESHOLDS: *Shear wave velocity less than 1.3 m/s (Liver Stiffness equal or less than 5 kPa): High probability of being normal. *Shear wave velocity less than 1.7 m/s (Liver Stiffness less than 9 kPa): In the absence of other known clinical signs, rules out compensated advanced chronic liver disease. *Shear wave velocity between 1.7-2.1 m/s (Liver Stiffness 9-13 kPa): Suggestive of compensated advanced chronic liver disease but need further test for confirmation. *Shear wave velocity between 2.1-2.4 m/s (Liver Stiffness 13-17 kPa): Rules in compensated advanced chronic liver disease. *Shear wave velocity greater than 2.4 m/s (Liver Stiffness over 17 kPa): Suggestive of clinically significant portal hypertension. QUALITY OF DATA SET: *IQR/Median value equal or less that 0.30 implies a quality data set. *IQR/Median value over 0.30 implies a poor quality data set. SIGNIFICANT CHANGE FROM PRIOR EXAM: Significant change if liver stiffness measurement is 10% or greater from prior exam. OTHER CONSIDERATIONS: The stage of liver fibrosis may be overestimated in the setting of acute hepatitis, liver inflammation, elevated liver function tests, hepatic vascular congestion, obstructive cholestasis, non-fasting state, and infiltrative diseases such as amyloidosis and lymphoma. In some patients with NAFLD, the liver stiffness thresholds for compensated advanced chronic liver disease may be lower. In causes other than viral hepatitis and NAFLD, liver stiffness thresholds are not well established. Electronically signed by: Edward Dorado MD 10/03/2024 09:29 AM EDT
--- OUTSIDE RECORDS SUMMARY | 2024-10-03 08:41 | XMS_ITS | Clinical Summary ---
Author Organization Formerly [facility] Address [address] [place] [address] Care Team Providers Care Care Coordination Manager Name Role Phone Unavailable Primary Care Provider Unavailabl e Social History Tobacco Use Types Packs/Day Years Used Date Smoking Tobacco: Never Assessed Sex and Gender Information Value Date Recorded Sex Assigned at Not on file Legal Sex Male 3:16 PM EDT Gender Identity Not on file Sexual Orientation Not on file Plan of Treatment Health Maintenance Due Date Last Done Comments Hepatitis C Virus Screening 1950 DTaP/Tdap/Td Vaccines (1 - Tdap) 1968 Pneumococcal Vaccines 50+ (1 of 1 - PCV) 12/17/1999 Zoster (Shingles) Vaccine (1 of 2) 12/17/1999 COVID-19 Vaccine ( - 2023-2 5 season) 2024 RSV Vaccine 60 years and old er and Patients (1 - 1-dose 75+ series) 2024 Hepatitis B Vaccines Aged Out No long er eligible based on patient's age to complete this topic
--- OUTSIDE RECORDS SUMMARY | 2024-10-03 08:41 | XMS_ITS | Data Portability ---
Author Organization [place] [facility] Sosa [place] [place] Address [address] [place] [id number] Care Team Providers Care Health Social Work Professor Name Role Phone BLAKE LOCKWOOD Primary Care Provider [phone] Assessment Encounter Date Assessment Date Assessment LastModified by Organization Details LastModified Time 10/28/2022 10/28/2022 Postop total hip arthroplasty protocol 1. DVT prophylaxis will continue on 28 days of 81 mg baby aspirin twice daily 2. Continuation of home exercises and physical therapy with fall precautions. The patient is to use ancillary assistive devices to prevent falls. 3. Antibiotic prophylaxis prior to dental work was issued sent off to the patient's pharmacy the rationale behind this was discussed in detail the patient is to refrain from any dental work unless emergent for 3 months from the time of surgery. 4. Narcotic pain medication will be issued on an as-needed basis with refill x 1 if needed. 5. The patient is not to drive until totally off narcotics. 6. The patient can shower, however no tub baths or swimming until completely healed. 7. We will see the patient back in 4 weeks time for repeat clinical exam all questions were answered at today's visit the patient is encouraged to call if they have any additional questions or concerns. The patient is in agreement with the above-noted plan. 8. There is no obvious signs of infection looks well-healed. He states he is already started back on his Humira prior to his visit today. Indirect care and treatment in conjunction with Dr. Randolph Additional treatment plan discussed with the patient in detail included the following; - Provider focused nonsteroidal anti-inflammator y regimen (discussed were the pros, cons, benefits and risks as well as any black box warnings) in patients over 60 years old they should be very cautious in taking these medications due to potential decreased kidney function and or elevated blood pressure. - Analgesic pain medication for pain suppression (discussed were the pros, cons, benefits and risks as well as any black box warnings) - The use of topical pain relieving medication were discussed - The use of ice to decrease inflammation and pain - The use of assistive ambulatory devices for ambulation and fall prevention - Formal specific guided physical therapy program I reviewed my findings at length with the patient today. ? ? ?We discussed the nature and etiology of this problem along with current treatment options. We discussed the expected course and outcomes and what to expect. We also discussed risks and benefits. ? ? ? All of their questions were answered today, and there was exhibited understanding and comprehension of all that was discussed. Time Spent: 10 minutes were spent reviewing previous imaging and charting. ? ? ?10 minutes were spent obtaining patient history. ? ? ?5 minutes were spent on physical exam. ? ? ?5? ? ?minutes were spent explaining diagnosis and assessment. Today's documentation was made using voice recognition software. This note may contain grammatical errors secondary to the software. Not available 10/29/2022 06:52:49 01/27/2023 01/27/2023 72-year-old male following up on his left total hip arthroplasty was performed with Dr. Randolph on 10/12/2022.. Patient is doing well clinically he will continue with a stretching exercise regimen which we did print him packet. He knows when to take his antibiotic prophylaxis prior to dental work. He has had ongoing back symptoms and left lower extremity paresthesias for which he did state he had an abnormal nerve conduction study however he was not too clear on the outcome findings for which she will call Elliot Bojorquez PA-C who is Dr. Sandor SOMMER. We will see him back at the 1 year nikolai. Indirect care and treatment in conjunction with Dr. Randolph Additional treatment plan discussed with the patient in detail included the following; - Provider focused nonsteroidal anti-inflammator y regimen (discussed were the pros, cons, benefits and risks as well as any black box warnings) in patients over 60 years old they should be very cautious in taking these medications due to potential decreased kidney function and or elevated blood pressure. - Analgesic pain medication for pain suppression (discussed were the pros, cons, benefits and risks as well as any black box warnings) - The use of topical pain relieving medication were discussed - The use of ice to decrease inflammation and pain - The use of assistive ambulatory devices for ambulation and fall prevention - Formal specific guided physical therapy program I reviewed my findings at length with the patient today. ? ? ?We discussed the nature and etiology of this problem along with current treatment options. We discussed the expected course and outcomes and what to expect. We also discussed risks and benefits. ? ? ? All of their questions were answered today, and there was exhibited understanding and comprehension of all that was discussed. Time Spent: 10 minutes were spent reviewing previous imaging and charting. ? ? ?10 minutes were spent obtaining patient history. ? ? ?5 minutes were spent on physical exam. ? ? ?5? ? ?minutes were spent explaining diagnosis and assessment. Today's documentation was made using voice recognition software. This note may contain grammatical errors secondary to the software. Not available 01/28/2023 13:31:16 Plan of Treatment Reminders Order Date Submit Date Provider Last Modified By Organization Details Last Modified Time Details Appointments None recorded. Lab None recorded. Referral None recorded. Procedures None recorded. Surgeries total hip arthroplast y (SURG) 2022 023 [email or web address] [id number] [facility], [address] [place], [address], 3 08:31:49 Imaging XR, hip, unilateral, 2 or 3 view 2022 023 [email or web address] [facility], [address], [place], [address], 3 15:57:45 Medication Orders None recorded. Patient TargetsNo targets recorded. Patient Instructions Encounter Date Encounter Id Patient Instructions Last Modified By Organization Details Last Modified Time 01/27/2023 [id number] Left hip x-ray reveals well-seated well-positioned total hip arthroplasty without sign of loosening. Without acute bony abnormality. Not available 02/02/2023 06:12:18 Reason for Referral None Reported. Results Created Date Observation Date Name Description Value Unit Range Abnormal Flag Note LastModifiedBy Organization Detail LastModifiedTime 09/03/19 23 MRI, hip, w/o contr ast No observ ation record ed. [email or web address] Not Available 2022 07:39:54 Result Notes None recorded. Problems Name Problem SNOMED Code Status Onset Date Resolution Date Notes Provider Name and Address Organization Details Recorded Time Osteoarthri tis of left hip joint 4415159807701 08 Active 2022 Abdiel Randolph MD [address] [facility],[address], [place], [address] , [place] [facility] 15:35:49 Problem Notes None recorded. Procedures Surgical History Date Name Laterality Status Provider Name and Address Organization Details Recorded Time Spine Surgery completed Chely Ray [facility] - [facility] 09/11/2022 14:24:02 Imaging Results Imaging Date Name Status LastModified by Organiz ation Details LastModified Time 09/02/2022 MRI, hip, w/o contrast completed [email or web address] Information not available 09/02/2022 07:39:54 Procedure Notes None recorded. Medical Equipment None Reported. Allergies No known drug allergies Medications Name Sig Start Date Stop Date Status Note LastModified by Organization Details LastModified Time cyclobenzapr ine 10 mg tablet TAKE 1 TABLET BY MOUTH THREE TIMES DAILY FOR 10 DAYS active Not Available Not Available Not Available furosemide 40 mg tablet TAKE 1 TABLET BY MOUTH DAILY active Not Available Not Available Not Available metformin 500 mg tablet TAKE 1 TABLET BY MOUTH TWICE A DAY active Not Available Not Available No t Available prednisone 10 mg tablet TAKE 1 TABLET BY MOUTH DAILY FOR 3 DAYS active Not Available Not Available N ot Available senna 8.6 mg tablet active Not Available Not Available Not Available meloxicam 15 mg tablet active Not Available Not Available No t Available sucralfate 1 gram tablet active Not Available Not Available Not Available FreeStyle Lancets 28 gauge USE DIRECTED THREE TIMES A DAY FOR TYPE 2 DIABETES MELLITUS active Not Available Not Available No t Available ondansetron HCl 4 mg tablet active Not Available Not Available Not Available prednisone 20 mg tablet TAKE 2 TABLETS BY MOUTH DAILY active Not Available Not Available Not Available sulfamethoxa zole 800 mg-trimethop rim 160 mg tablet TAKE 1 TABLET BY MOUTH TWICE DAILY active Not Available Not Available No t Available aspirin 81 mg tablet,delay ed release active Not Available Not Available N ot Available tramadol 50 mg tablet TAKE 1 TAB BY MOUTH EVERY 6 HOURS NEEDED FOR PAIN. active Not Available Not Available No t Available acetaminophe n 500 mg tablet TAKE 1 TO 2 TABLETS BY MOUTH THREE TIMES DAILY NEEDED WITH FOOD active Not Available Not Available No t Available triamcinolon e acetonide 0.1 % topical cream APPLY SPARINGLY TOPICALLY TO RASH THREE TIMES DAILY. MAX 2 WEEK active Not Available Not Available No t Available cefadroxil 500 mg capsule active Not Available Not Available Not Available amoxicillin 875 mg tablet TAKE 1 TABLET BY MOUTH EVERY 12 HOURS FOR 10 DAYS active Not Available Not Available Not Available methocarbamo l 750 mg tablet active Not Available Not Available Not Available hydrocortiso ne 2.5 % lotion active Not Available Not Available Not Available Humalog U-100 Insulin 100 unit/mL subcutaneous solution PLEASE SEE ATTACHED FOR DETAILED DIRECTIONS active Not Available Not Available N ot Available diazepam 2 mg tablet TAKE 1 TABLET BY MOUTH EVERY 8 HOURS NEEDED FOR MUSCLE SPASM active Not Available Not Available No t Available dexamethason e 2 mg tablet TAKE 2 TABLETS BY MOUTH TWICE DAILY active Not Available Not Available No t Available cephalexin 500 mg capsule TAKE 1 CAPSULE BY MOUTH FOUR TIMES DAILY FOR 5 DAYS active Not Available Not Available N ot Available pantoprazole 40 mg tablet,delay ed release active Not Available Not Available N ot Available metformin 1,000 mg tablet TAKE 1 TABLET BY MOUTH TWICE DAILY active Not Available Not Available No t Available mupirocin 2 % topical ointment APPLY TOPICALLY TO THE AFFECTED AREA THREE TIMES DAILY active Not Available Not Available Not Available furosemide 20 mg tablet TAKE 1 TABLET BY MOUTH DAILY IN THE MORNING active Not Available Not Available No t Available Novolog U-100 Insulin aspart 100 unit/mL subcutaneous solution INJECT 10 TO 22 UNITS UNDER THE SKIN PER SLIDING SCALE THREE TIMES DAILY BEFORE MEALS active Not Available Not Available No t Available lorazepam 1 mg tablet TAKE 1 TO 2 TABLETS BY MOUTH NEEDED FOR MRI PROCEDURE. MAX DOSE 2MG DAILY active Not Available Not Available No t Available budesonide DR - ER 3 mg capsule,dean yed,extended release TAKE 3 CAPSULES BY MOUTH DAILY active Not Available Not Available Not Available polyethylene glycol 3350 17 gram/dose oral powder DISSOLVE 238 GRAMS IN LIQUID AND TAKE BY MOUTH ONCE FOR 1 DAY active Not Available Not Available No t Available ketoconazole 2 % topical cream APPLY TOPICALLY TO RASH EVERY DAY FOR UP TO 4 WEEKS active Not Available Not Available No t Available hydromorphon e 4 mg tablet TAKE 1/2 TO 1 TABLET BY MOUTH EVERY 6 HOURS NEEDED FOR SEVERE PAIN active Not Available Not Available Not Available doxycycline hyclate 100 mg tablet TAKE 1 TABLET BY MOUTH TWICE A DAY FOR 7 DAYS active Not Available Not Available No t Available naproxen 500 mg tablet TAKE 1 TABLET BY MOUTH TWICE DAILY WITH FOOD NEEDED active Not Available Not Available No t Available oxycodone 5 mg tablet TAKE 1 TO 2 TABLET S EVERY 4 HOURS NEEDED FOR MODERATE PAIN active Not Available Not Available No t Available BD Insulin Syringe Ultra-Fine 0.5 mL 30 gauge x 1/2 USE DIRECTED TO INJECT INSULIN THREE TIMES DAILY active Not Available Not Available No t Available Humira Pen 40 mg/0.8 mL subcutaneous kit active Not Available Not Available Not Available mesalamine 1.2 gram tablet,delay ed release TAKE 2 TABLETS BY MOUTH EVERY MORNING AND 2 TABLETS BY MOUTH IN THE AFTERNOON active Not Available Not Available No t Available FreeStyle Lite Meter kit USE DIRECTED CHECK 3 TIMES A DAY, NEW ONSET DIABETES UNCONTROLLE D active Not Available Not Available No t Available FreeStyle Lite Strips USE TO CHECK BLOOD SUGAR THREE TIMES DAILY active Not Available Not Available Not Available Novofine 32 32 gauge x 1/4 needle USE DAILY TO INJECT TRESIBA active Not Available Not Available No t Available BD Insulin Syringe Ultra-Fine 0.3 mL 31 gauge x 5/16 USE FOR INSULIN ADMINISTRAT ION THREE TIMES DAILY active Not Available Not Available Not Available Jardiance 10 mg tablet TAKE 1 TABLET BY MOUTH DAILY IN THE MORNING active Not Available Not Available No t Available Tresiba FlexTouch U-100 insulin 100 unit/mL (3 mL) subcutaneous pen ADMINISTER 45 UNITS UNDER THE SKIN EVERY DAY active Not Available Not Available No t Available Vitals Date Recorded Body height Body mass index (BMI) Body weight Provider Name and Address Organization Details Last Updated DateTime 09/11/2022 177.8 cm 38 kg/m2 957733.98 g Chely Marcellus [facility] 09/11/2022 14:22:44 Date Recorded Body height Provider Name an d Address Organization Details Last Updated DateTime 10/28/2022 177.8 cm Mira Goldman [facility] 10/28/2022 10:07:00 Date Recorded Body height Provider Name an d Address Organization Details Last Updated DateTime 11/27/2022 177.8 cm Chely Germain [facility] 11/27/2022 13:46:37 Date Recorded Body mass index (BMI) Body weight Provider Name and Address Organization Details Last Updated DateTime 11/27/2022 38 kg/m2 861682.[address] [place] [facility] 11/27/2022 14:00:01 Date Recorded Body height Provider Name an d Address Organization Details Last Updated DateTime 01/27/[address] [place] [facility] 01/27/2023 16:00:27 Social History Question Answer Notes LastModified by Organizat ion Details LastModified Time Tobacco Smoking Status Never Smoker Chely Germain [place], [place] - [facility] 09/11/2022 14:22:58 What Is Your Level Of Alcohol Consumption? None Information not available 09/11/2022 Do You Use Any Illicit Or Recreational Drugs? No Information not available 09/11/2022 Sex: Unknown Functional Status None recorded. Mental Status None recorded. Family History Relationship Description Onset Age of this Age Resolved Age Notes LastModified by Organization Details LastModified Time Mother Diabetes mellitus [email or web address] Not available 2022 14:23:30 Mother Family history of malignant neoplasm [email or web address] Not available 2022 14:23:48 Medical History Condition Response Diabetes Y Past Encounters Encounter ID Performer Location Encounter Start Date Encounter Closed Date Diagnosis/Indication Diagnosis SNOMED-CT Code Diagnosis ICD10 Code Diagnosis Note [id number] MD PERRY Velazquez [address] [facility] [address] [place] [address] 09/11/2022 13:27:42 09/11/2022 14:49:54 Osteoarthritis of left hip joint 4014351665 05477 M16.12 Arthritis of hip 2915039 6 M13.859 [id number] SAMRA NAJERA [address] [facility] [address] [place] [address] 10/28/2022 09:23:19 10/28/2022 10:39:12 [id number] MD PERRY Velazquez [place] [address] [facility] [address] [place] [address] 11/27/2022 13:19:51 11/27/2022 14:03:38 Aftercare [id number] Z47.[id number] [facility] [address] [facility] [address] [place] [address] 01/27/2023 15:08:38 01/27/2023 15:59:45 History of left hip replacement 9205175359 605980 Z96.642 Osteoarthr itis of left hip joint 3102146123 43547 M16.12 Health Concerns Section Related Observation LastModified by Organization Detai ls LastModified Time None Recorded Concern Status LastModified by Organization Details LastModified Time None Recorded Advance Directives Directive None Recorded Payers Encounter Date Sequence Insurance Name Policy Number Policy Mendiola Covered Member ID Mendiola Member ID Guarantor Name 09/11/2022 1 [place]ARE [place] [facility] Edward C Jenaro [id number] Edward Jenaro 10/28/2022 1 [place] [facility] Edward C Jenaro [id number] Edward Jenaro 10/28/2022 2 [place] [facility] Edward C Jenaro [id number] Edward Jenaro 11/27/2022 1 MEDICARE B-[place]: [facility] Edward C Jenaro [id number] Edward Jenaro Notes Date Note Type Note Provider Name and Address Organization Details Recorded Time 09/11/2022 text/html HPI:?Thank you for the pleasure of requesting a consultation on this patient. Patient comes in complaining of left hip pain. He has a history of a right total hip replacement with Dr. Simon in 2014. He also underwent lumbar spine third surgery in 2021.?This patient is experiencing left hip pain for a period lasting greater than the last three months, which is severe (VAS score greater than or equal to 6 on a 0-10 scale) in intensity and the restriction of function (appropriate for a patient of this age) are intolerable. The pain substantially limits activities of daily living. In particular, walking tolerance and ability to stair climb is reduced. Conservative management such as non-steroidal anti-inflammatory medications available by prescription, physician directed therapy, ice and/or heat and activity modification have been minimally effective or deemed insufficient by the patient for a period lasting greater than 3-6 months in duration. Assistive devices and external support were not deemed by the patient to be helpful in improving their function. The patient is unable to tolerate further physical therapy at this time. Review of systems is negative for rapidly progressive neurological disorder, chest pain, shortness of breath, fevers, chills, or any signs of active or persistent local or systemic infection. Physical Exam: Patient is well nourished, well-developed, in no acute distress, with appropriate mood and affect. The patient is oriented to time, place, and person. Respirations are even and unlabored. Gait evaluation reveals a limp. There is no inguinal adenopathy. Examination of the contralateral hip shows normal range of motion, strength, no tenderness, and well-healed skin incision. The affected limb is well-perfused, shows a grossly normal motor and sensory examination. Examination of the hip shows no skin lesions. Hip motion is reduced and causes pain. FADIR is positive and ZOIE is positive. Stinchfield test is positive. Leg lengths are approximately equal. Both hips are stable and muscle strength is normal. Pedal pulses are palpable. Radiographs: Radiographs of the left hip from March 25, 2020 to demonstrate left hip degenerative joint disease with joint space narrowing, osteophyte formation, and subchondral sclerosis. 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 Assessment/Plan: The patient is an appropriate candidate for consideration of left total hip replacement. An extensive discussion was conducted of the natural history of the disease and the variety of surgical and non-surgical treatment options available to the patient. A risk/benefit analysis was discussed with the patient reviewing the advantages and disadvantages of surgical intervention at this time. A full explanation was given of the nature and the purpose of the procedure and anesthesia, its benefits, possible alternative methods of diagnosis or treatment, the risks involved, the possibility of complications, the foreseeable consequences of the procedure and the possible results of the non-treatment. No guarantee or assurance was made as to the results that may be obtained. Specifically, the risks were identified to include, but are not limited to the following: Infection, phlebitis, pulmonary embolism, , paralysis, dislocation, pain, stiffness, instability, limp, weakness, breakage, leg-length inequality, uncontrolled bleeding, nerve injury, blood vessel injury, pressure sores, anesthetic risks, delayed healing of wound and bone, and wear and loosening. Additional risks of robotic hip replacement were discussed (if used) including but not limited to pin site infection, draining, longer incision, longer OR time, and fracture near the pin sites. Further discussion was undertaken with the patient about the details of surgical preparation, treatment, and postoperative rehabilitation including medical clearance, autotransfusion, the hospital course, and the postoperative rehabilitation involved. As a part of routine preoperative counseling, the patient either denies recent smoking history or, after education was provided, agrees to attempt smoking cessation. The patient has also been counseled regarding the elevated risk of surgical complications in patients with an elevated BMI. The patient demonstrates understanding of the increased risk in such patients. The patient was encouraged to participate in physical activity and diet modification under the direction of their primary care physician. We will plan on proceeding with left total hip arthroplasty using the [place] hip replacement system. However, it is possible during the preoperative planning process or due to intraoperative findings that a different implant system may be utilized in order to optimize the patient's outcome. We had a discussion regarding implant and bearing options. We had a detailed discussion of the advantages and limitations of the specific implant designs, materials and bearing surfaces. All questions were answered to the patient's satisfaction, and the patient was asked to call the office with any further concerns. All in all, I feel that this patient is a good candidate for surgical reconstruction. Plan for left total hip replacement at [facility]. Abdiel Randolph MD [address] [place] [address], [address], [place] - [facility] 09/11/2022 15:37:10 10/28/2022 text/html 71-year-old male status post left total hip arthroplasty by Dr. Randolph on 10/12/2022 here for his 2-week follow-up. Patient has concerns that there is a leg length discrepancy. He states his pain is manageable at this time. He is currently on 28 days of 81 mg baby aspirin twice daily for DVT prophylaxis. He is currently on oxycodone, aspirin for postoperative pain. He denies fevers, chills, flulike symptoms, cough, shortness of breath or calf pain. Patient admits to not being compliant with his exercise regimen . He also states he started back on his Humira on Wednesday MIMA FOSS PA-C [address] [facility],[address], [place], [address], [place] [facility] 10/29/2022 06:53:08 11/27/2022 text/html HPI: Patient is here for a 6 week follow-up from a {{left* right bilate ral}} YASMIN. He is recovering well. He is walking with a cane. His strength is improving. His pain is improving. He is happy with his progress so far. Physical Exam:Patient is well nourished, well- developed, in no acute distress, with appropriate mood and affect. The patient is AAOx3. The patient demonstrates good hip motion and strength. The incision is well healing. Assessment/Plan: The patient is functioning well 6 weeks from total hip arthroplasty. Continue physical therapy as needed. Return for follow-up in 2 months with x-rays at that time. Abdiel Randolph MD [address], [place], [address], [place] [facility] 11/27/2022 14:00:19 01/27/2023 text/html L hip. L-YASMIN 10/12/22. xrays today Patient states he is doing well after his left total hip arthroplasty on the above-noted date. States he does not do his stretching exercises. He knows when to take his antibiotic prophylaxis no other complaints. He states he did have a follow-up with Bal Bojorquez PA-C yesterday regarding ongoing back and nerve problems within his left lower extremity. MIMA FOSS PA-C [address] [facility],[address], [place], [id number], [place] - [facility], P 02/02/2023 06:12:37
--- OUTSIDE RECORDS SUMMARY | 2024-10-03 08:42 | XMS_ITS | Clinical Summary ---
Author Organization [facility] Address [address] [place] [address] Care Team Providers Care Fpga Engineer Name Role Phone Sandy Oswald MD Primary Care Provider [phone] Allergies Active Allergy Reactions Criticality Noted Date Comments Nka 08/03/2015 Other reaction(s): UNKNOWN Medications Medication Sig Dispensed Refills Start Date End Date Status clotrimazole-betame thasone (LOTRISONE) cream Apply to affected area twice daily as needed on feet 0 02/13/2016 Active Multiple Vitamin (MULTIVITAMIN PO) 1 tablet daily. 0 05/11/2018 Ac tive Ascorbic Acid (VITAMIN C PO) Take 1,000 mg by mouth daily. 0 09/29/2021 Active [place]-3 Fatty Acids (FISH OIL PO) Take 1,200 mg by mouth daily. 0 09/29/2021 Active GARLIC PO 600 mg daily. 0 09/29/2021 Active insulin lispro (HumaLOG) 100 UNIT/ML injection Sliding Scale tid with meals 0 09/29/2021 Active Magnesium Oxide 420 MG TABS Take 420 mg by mouth daily. 0 09/29/2021 Active Humira Pen-CD/UC/HS Starter 40 MG/0.8ML injection 0.8 mL (40 mg total) every 14 (fourteen) days. Humira : Takes on Wednesdays Last on 09/16/22 0 01/09/2022 Active FREESTYLE LITE test strip USE TO CHECK BLOOD SUGAR THREE TIMES DAILY 0 07/27/2022 Active hydrocortisone 2.5 % lotion APPLY TOPICALLY TO THE AFFECTED AREA TWICE DAILY NEEDED FOR ITCHY SKIN 0 09/10/2022 Active metFORMIN (GLUCOPHAGE) tablet 1000 mg Take 1 tablet (1,000 mg total) by mouth 2 (two) times a day. 0 09/02/2022 Active furosemide (LASIX) 40 MG tablet Take 1 tablet (40 mg total) by mouth daily. 0 08/07/2022 Active methocarbamol (ROBAXIN) 750 MG tablet Take 1 tablet (750 mg total) by mouth every 6 (six) hours as needed. 56 tablet 0 10/14/2022 Active oxyCODONE (ROXICODONE) 5 MG immediate release tablet Take 1 tablet (5 mg total) by mouth every 4 (four) hours as needed for pain. 40 tablet 0 10/14/2022 Active cefadroxil (DURICEF) 500 MG capsule Take 1 capsule (500 mg total) by mouth 2 (two) times a day. 20 capsule 0 10/14/2022 Active Active Problems Problem Noted Date Diagnosed Date Aftercare following joint replacement 10/13/2022 Left hip pain 06/30/2022 Arthritis of left hip 05/17/2019 Meyer's cyst, left 03/15/2019 Effusion of left knee joint 10/20/2018 Chronic right shoulder pain 10/20/2018 Family History Medical History Relation Name Comments Cancer Mother Diabetes Mother Relation Name Status Comments Mother Social History Tobacco Use Types Packs/Day Years Used Date Smoking Tobacco: Never Smokeless Tobacco: Never Tobacco Cessation:Counseling Given: Not Answered Alcohol Use Standard Drinks/Week Comments No 0 (1 standard drink = 0.6 oz pur e alcohol) Sex and Gender Information Value Date Recorded Sex Assigned at Choose not to disclose 08/2022 12:20 PM EDT Gender Identity Choose not to disclose 12:20 PM EDT Sexual Orientation Choose not to disclose 2022 6:34 AM EDT Job Start Date Occupation Industry Not on file Not on file Not on file Last Filed Vital Signs Vital Sign Reading Time Taken Comments Blood Pressure 154/74 10/15/2022 8:03 AM EDT Pulse 86 10/15/2022 8:03 AM EDT Temperature 36.6 ??C (97.9 ??F) 10/15/2022 8:03 AM ED T Respiratory Rate 18 10/15/2022 8:03 AM EDT Oxygen Saturation 97% 10/15/2022 8:03 AM EDT Inhaled Oxygen Concentration - - Weight 117.9 kg (260 lb) 10/13/2022 8:22 AM EDT Height 177.8 cm (5' 10 ) 10/13/2022 8:22 AM EDT Body Mass Index 37.31 10/13/2022 8:22 AM EDT Plan of Treatment Health Maintenance Due Date Last Done Comments Hepatitis C Screening 1950 COVID-19 Vaccine (#1) 06/18/1950 Depression Screening 1961 BMI Counseling 12/17/1967 Preventative Health Evaluation 12/17/1967 Colon Cancer Screening (Colonoscopy) 1994 Breast Cancer Screening (Mammogram) 12/17/1999 Fall Risk Assessment 2014 Osteoporosis Screening (DEXA Scan) 2014 Shingrix-Zoster Vaccine (2 of 2) 03/20/2018 01/23/2018 Influenza Vaccine (#1) 2024 , 01/09/2022, 01/22/2021, Additional history exists DTap / Tdap / Td (2 - Td or Tdap) 06/27/2024 06/27/2014 RSV Adult > 60+ Yrs or (1 - 1-dose 75+ series) 2024 Pneumococcal Vaccine Completed 05/05/2019, 08/01/2015, 11/29/2014 Hepatitis B Vaccines Aged Out No long er eligible based on patient's age to complete this topic RSV Ped < 20 months Aged Out No longe r eligible based on patient's age to complete this topic Medical Devices Implanted Type Area Biological Inspector Device Identifier Shelf Expiration Date Model / Serial / Lot Tritanium Cluster Hole Shell 54mm [facility] [id number] - [id number] Implanted:Qty: 1 on 10/12/2022 by Abdiel Randolph MD [place] [facility] Left: Hip [employer] [id number] 07/07/2027 [id number] / / [id number] Liner Trident X3 0 Deg 36mm 5.9mm Sz E [facility] [id number] - [id number] Implanted:Qty: 1 on 10/12/2022 by Abdiel Randolph MD [place] [facility] Left: Hip [employer] [id number] 08/23/2027 [id number] / / [id number] Lp Hex Screw 6.5x25mm St[employer] [id number] - [id number] Implanted:Qty: 1 on 10/12/2022 by Abdiel Randolph MD [place] [facility] Left: Hip [employer] [id number] 08/17/2027 [id number] / / [id number] Hip Head Delta Biolox 36mm -5 Stry-Howm [id number] - [id number] Implanted:Qty: 1 on 10/12/2022 by Abdiel Randolph MD at [facility] Left: Hip [employer] [id number] 07/22/2027 [id number] / / [id number] Insignia Hip Stem Standard Offset Implanted:Qty: 1 on 10/12/2022 by Abdiel Randolph MD at [facility] Left: Hip [employer] 07/30/2027 [id number] / / [id number] Advance Directives For more information, please contact: [phone] Latest Code Status on File Code Status Date Activated Date Inactivated Comments Full Code 10/12/2022 9:40 AM 10/15/2022 9:07 PM This code status was ascertained in the following way: discussion with patient . Code Status History Code Status Date Activated Date Inactivated Comments Full Code 10/12/2022 6:32 AM 10/12/2022 9:40 AM This code status was ascertained in the following way: discussion with patient . Care Teams Fpga Engineer Relationship Specialty Start Date End Date Sandy Oswald MD [address] [place] [id number] PCP - General Family Medicine 06/30/22
[2024-10-03 08:43] LABS: MANUAL DIFF FLAG NO
[2024-10-03 09:26] LABS: Basophils Percent Auto 0.5 % (0-2); Eosinophils Percent Auto 0.4 % (0-4); Hemoglobin 16.3 g/dl (14.0-18.0); Imm Gran Abs Auto 0.03 X10*3/uL (0.00-0.03); Imm Gran Pct Auto 0.4 % (0.0-0.4); Lymphocytes Absolute Auto 2.9 X10*3/uL (1.2-4.9); Lymphocytes Percent Auto 37.3 % (20-40); Mean Corpuscular HGB Conc 33.3 g/dl (31.0-36.0); Mean Corpuscular Volume 90.1 fL (80.0-98.0); Mean Platelet Volume 9.4 fL (9.4-12.4); Monocytes Absolute Auto 0.7 X10*3/uL (0.1-1.2); Monocytes Percent Auto 8.3 % (2-11); Neutrophils Absolute Auto 4.2 x10*3/uL (2.0-8.3); Neutrophils Percent Auto 53.1 % (45-73); Platelet Count 159 X10*3/uL (160-400); Red Blood Count 5.44 X10*6/uL (4.60-5.80); Red Cell Distribution Width 13.6 % (11.0-16.0); White Blood Count 7.9 X10*3/uL (4.8-10.8)
[2024-10-03 09:55] LABS: Alanine Aminotransferase 44 U/L (0-40); Albumin Level 4.2 g/dL (3.5-5.0); Alkaline Phosphatase 71 U/L (39-117); Anion Gap 12 (12-20); Aspartate Amino Transferase 29 U/L (5-37); Bilirubin Total 0.7 mg/dL (0.0-1.0); Blood Urea Nitrogen 21 mg/dL (9-16); Calcium 8.9 mg/dL (8.4-10.2); Carbon Dioxide 28 mmol/L (22-29); Chloride 106 mmol/L (96-108); Estimated Glomerular Filt Rate > 60; Glucose Random 64 mg/dL (60-115); Potassium 3.9 mmol/L (3.3-5.1); Sodium 142 mmol/L (135-145)
== END 2024-10-03 08:25 | disposition home or self-care (01) ==
LOC: HO.US 08:24
PROVIDERS: Absent Provider Internal Medicine; PCP Family Medicine; Visit Provider Nurse Practitioner
DX: K75.81 Nonalcoholic steatohepatitis (NASH) (principal); K50.10 Crohn's disease of large intestine without complications
CPT/HCPCS: 36415; 76705; 76981; 80053; 85025; 86140

== ENCOUNTER → 2024-10-03 08:46 | Outpatient (BNV) | payer MEDICARE, MEDICAID, SELFPAY | PROVIDERS: Absent Provider Internal Medicine; PCP Family Medicine; Visit Provider Radiology Diagnostic Radiology | DX: K76.0 Fatty (change of) liver, not elsewhere classified (principal); R16.0 Hepatomegaly, not elsewhere classified | CPT/HCPCS: 76705; 76981 ==

== ENCOUNTER 2025-02-20 08:40 | Outpatient (AMB) | payer MEDICARE, MEDICAID, SELFPAY ==
[2025-02-20 08:59] VITALS: BP 126/71; PULSE 88; BMI 37.3
--- NOTE | 2025-02-20 08:59 | MHC.OFFVIS ---
Vital Signs 02/20/25 08:59 Height 5 ft 10 in Weight 260 lb 2.327 oz BMI 37.3 BP 126/71 Blood Pressure Location Lt brachial Position Sitting Pulse 88 Intake Visit Reasons: 6 months follow up-US and lab results Intake Note: Naveed presents in 6 months follow up for US and lab results. CC: Patient underwent Lt shoulder replacement surgery on 12/13. [facility] ER at [place] [facility]. He denies having any GI symptoms today. Morgue Technician Required: No Accompanied by: Self / Same As Patient Allergies No Known Allergies Allergy (Verified 02/20/25 09:01) HPI HPI 6 months follow up-US and lab results: Details: Assessment & Plan (1) Crohn's colitis: Code(s): K50.10 - Crohn's disease of large intestine without complications Category: Medical (2) ROMO (nonalcoholic steatohepatitis): Comment: BASELINE Laboratory Tests 11/28/20 Estimated GFR > 60 Ferritin 56 Total Bilirubin 0.6 Direct Bilirubin 0.2 AST 15 ALT 20 Alkaline Phosphatase 58 Alpha Fetoprotein 1.6 Anti-Mitochondrial Ab NEGATIVE Anti-Smooth Muscle Ab <20 Hepatitis A IgM Ab Nonreactive Hep Bs Antigen Negative Hep Bs Antibody NONREACTIVE Hep B Core Total Ab Nonreactive Hepatitis C Ab (EIA) Nonreactive CURRENT LABS 12/26/2307/03/23 19:5406:38 Plt Count 191 Total Bilirubin 0.5 AST 17 ALT 15 Alkaline Phosphatase 89 ULTRASOUND OF THE ABDOMEN 09/16/22 FINDINGS: PANCREAS: The visible portion of the pancreas appears normal. Most of the pancreas is obscured by bowel gas. LIVER: The liver is normal in size. The liver contour is normal. There is diffuse increased liver parenchymal echogenicity, consistent with hepatic steatosis.? There is a 1.4 cm simple cyst in the posterior right lobe. There is no intrahepatic biliary duct dilatation seen. GALLBLADDER: Cholesterol crystal artifact in the wall the gallbladder consistent with adenomyomatosis. No discrete gallstone. No mural edema or pericholecystic fluid. COMMON BILE DUCT: Normal in caliber measuring 0.2 cm in diameter. RIGHT KIDNEY: Normal. No hydronephrosis. No renal calculi or focal parenchymal lesions. The kidney measures 11.5 cm in maximum dimension. FREE FLUID: None. US/US abdomen limited IMPRESSION: Fatty liver. Code(s): K75.81 - Nonalcoholic steatohepatitis (ROMO) Category: Medical (3) Diverticulitis: Code(s): K57.92 - Diverticulitis of intestine, part unspecified, without perforation or abscess without bleeding Category: Medical Plan He continues to do well on the Humira, however he is back on insulin because he has severe degeneration of both shoulder and has been receiving cortisone injections. He just had an MRI and will be having surgery at some point with [facility]. He is overdue for ROMO monitoring. He is agreeable to having repeat labs and an US. He has a hx of TICS and had a recent flair of LLQ pain. He presented to [facility] but he waited for many hours until the early am hours so he left. I will give him an RX for augmentin to keep on hand for any exacerbations as this has a predictable course with many ER visits over many years and it always resolves with augmentin. [facility] will be his new pharmacy. Return office visit in 6 month Orders: Orders Complete Blood Count Auto Diff Today K50.10 - Crohn's disease of large intestine without complications, K75.81 - Nonalcoholic steatohepatitis (ROMO) Comprehensive Met. Panel Today K50.10 - Crohn's disease of large intestine without complications, K75.81 - Nonalcoholic steatohepatitis (ROMO) US abdomen thakur w elastography Today K50.10 - Crohn's disease of large intestine without complications, K75.81 - Nonalcoholic steatohepatitis (ROMO) C Reactive Protein Today K50.10 - Crohn's disease of large intestine without complications Medications: New amoxicillin-pot clavulanate 875-125 mg 1 tab PO BID 28 tabs 0RF 14 days K57.92 - Diverticulitis of intestine, part unspecified, without perforation or abscess without bleeding amoxicillin-pot clavulanate 875-125 mg 1 tab PO BID 14 days 28 tabs 0RF K57.92 - Diverticulitis of intestine, part unspecified, without perforation or abscess without bleeding Laboratory Tests 10/03/24 08:40 Plt Count 159 L Estimated GFR > 60 Total Bilirubin 0.7 AST 29 ALT 44 H Alkaline Phosphatase 71 Ultrasound of the abdomen with elastography 10/03/2024 (F0) FINDINGS: Liver: The right lobe of the liver measures 18.2 cm in size. The left lobe of the liver measures 12.2 cm in size. The liver demonstrates increased echotexture, consistent with steatosis. No focal mass or intrahepatic biliary ductal dilatation is identified. There is normal hepatopedal flow in the portal vein. Ultrasound elastography of the liver was performed with 10 separate measurements of the liver parenchyma with the patient in the supine position. Measurements were obtained approximately 2 cm below Barbara's capsule and perpendicular to the capsule. Images are of satisfactory quality. The median shear wave velocity is 1.14 m/s. The interquartile range/median (IQR/median) is 0.26. Gallbladder and biliary tree: The gallbladder is unremarkable, without evidence of calculi, wall thickening, or pericholecystic fluid. There is no sonographic Genao sign. The common bile duct is not visualized. Right Kidney: The right kidney measures 11.6 cm in length. The right kidney is unremarkable, without evidence of masses, hydronephrosis, or calculi. Pancreas: The pancreatic head, neck, and body are unremarkable. The pancreatic tail is obscured by bowel gas. Abdominal aorta and inferior vena cava: The visualized portions of the abdominal aorta and inferior vena cava are normal in caliber. There is no free fluid in the right upper quadrant. US/US abdomen thakur w elastography IMPRESSION: Hepatomegaly and hepatic steatosis. The median shear wave velocity in the liver is 1.14 m/s, corresponding to a median liver stiffness of 3.9 kPa. The IQR/median value is 0.26. This is indicative of a quality data set. Findings are indicative of a normal elastography value with a low likelihood of severe fibrosis or cirrhosis. [facility] VISIT [facility] Medical History (Updated 02/20/25 @ 09:40 by JONATHAN Leo) Diverticulitis Acute diarrhea Rectal cyst Sepsis Surgical History (Updated 02/20/25 @ 09:08 by IRIS Riggins) H/O shoulder replacement History of right hip replacement Hx of colonoscopy Family History Mother Diabetes Breast cancer, Onset Age: 74 Social History Alcohol intake: current Alcohol intake frequency: does not drink Patient Tobacco Use Status: Never used Tobacco Second Hand Smoke Exposure: No Review of Systems Const Denies fatigue, Denies fever(s), Denies night sweats, Denies poor appetite and Denies weight loss Eyes Details: glasses Reports requires corrective lenses ENT Reports Normal hearing present, Denies dental pain, Denies dysphagia, Denies hearing loss, Denies mouth pain, Denies odynophagia, Denies throat swelling, Denies tongue swelling and Reports other (Dentition adequate) Card Reports no additional complaints Resp Reports no additional complaints GI Details: Denies abdominal pain, Denies melena, Denies bloating, Denies hematochezia, Denies constipation, Denies GI cramping, Denies dysphagia, Denies excessive flatus, Denies early satiety, Denies heartburn, Denies diarrhea, Denies nausea, Denies odynophagia, Denies vomiting and Denies hematemesis Musc Reports arthralgias and Reports limited range of motion Skin/Breast Denies pruritus, Denies lesions, Denies rash and Denies jaundice Neuro Reports Normal hearing present and Denies Abnormal speech present Endo Denies fatigue Aller/Immun Denies throat swelling and Denies tongue swelling Physical Exam Vital Signs: Last Vital Signs Pulse 88 02/20/25 08:59 BP 126/71 02/20/25 08:59 BMI result Body Mass Index 37.3 Const General: cooperative, no acute distress, well developed and well groomed Nutritional Appearance: well nourished and obese Orientation/consciousness: oriented to person, oriented to place and oriented to time Limitations: No language barrier HEENT Head: Yes normocephalic and Yes atraumatic Eyes General: appearance normal, both eyes and all related structures Pupils: Equal, round and reactive pupils present Neck Neck: Yes normal visual inspection and Yes no lymphadenopathy Thyroid: Thyroid normal Resp Effort & Inspection: normal respiratory effort and able to speak in complete sentences Auscultation: clear to auscultation bilaterally Cardio Rate: regular rate Rhythm: regular rhythm Heart sounds: Normal, physiologic split S2 sound present Peripheral pulses: radial pulses present and posterior tibial pulses present GI Inspection: No distended, Yes Abdominal panniculus present and Yes obesity Palpation (GI): Soft to palpation, nontender, no guarding, not rigid and No hepatosplenomegaly present Percussion: Yes normal to percussion Auscultation: normal bowel sounds Rectal Exam - Male: Yes deferred Skin General skin exam: no rashes or lesions noted, turgor normal, skin not dry, no jaundice, No spider nevi and no striae Rashes: no rashes Nails: normal Neuro General: oriented to person, oriented to place and oriented to time Cranial nerves: Yes Equal, round and reactive pupils present and Yes Normal hearing present Speech: No Abnormal speech present Extrem General: Yes normal to inspection, No clubbing, No cyanosis and No edema Psych Appearance: grossly normal and well kempt Mental Status: mental status grossly normal Speech and movement: Normal speech and movement present Affect: normal affect Attitude: cooperative Thought process: Normal thought process present and not confabulating Thought content: Normal thought content present Insight: Good insight present (Psych) Judgement: Good judgement present (Psych) Assessment & Plan Assessment & Plan (1) Crohn's colitis: Code(s): K50.10 - Crohn's disease of large intestine without complications Category: Medical (2) Diverticulitis: Code(s): K57.92 - Diverticulitis of intestine, part unspecified, without perforation or abscess without bleeding Category: Medical (3) ROMO (nonalcoholic steatohepatitis): Comment: BASELINE Laboratory Tests 11/28/20 Estimated GFR > 60 Ferritin 56 Total Bilirubin 0.6 Direct Bilirubin 0.2 AST 15 ALT 20 Alkaline Phosphatase 58 Alpha Fetoprotein 1.6 Anti-Mitochondrial Ab NEGATIVE Anti-Smooth Muscle Ab <20 Hepatitis A IgM Ab Nonreactive Hep Bs Antigen Negative Hep Bs Antibody NONREACTIVE Hep B Core Total Ab Nonreactive Hepatitis C Ab (EIA) Nonreactive Ultrasound of the abdomen with elastography 10/03/2024 (F0) CURRENT LABS 10/03/24 08:40 Plt Count 159 L Estimated GFR > 60 Total Bilirubin 0.7 AST 29 ALT 44 H Alkaline Phosphatase 71 Ultrasound of the abdomen with elastography 10/03/2024 (F0) FINDINGS: Liver: The right lobe of the liver measures 18.2 cm in size. The left lobe of the liver measures 12.2 cm in size. The liver demonstrates increased echotexture, consistent with steatosis. No focal mass or intrahepatic biliary ductal dilatation is identified. There is normal hepatopedal flow in the portal vein. Ultrasound elastography of the liver was performed with 10 separate measurements of the liver parenchyma with the patient in the supine position. Measurements were obtained approximately 2 cm below Barbara's capsule and perpendicular to the capsule. Images are of satisfactory quality. The median shear wave velocity is 1.14 m/s. The interquartile range/median (IQR/median) is 0.26. Gallbladder and biliary tree: The gallbladder is unremarkable, without evidence of calculi, wall thickening, or pericholecystic fluid. There is no sonographic Genao sign. The common bile duct is not visualized. Right Kidney: The right kidney measures 11.6 cm in length. The right kidney is unremarkable, without evidence of masses, hydronephrosis, or calculi. Pancreas: The pancreatic head, neck, and body are unremarkable. The pancreatic tail is obscured by bowel gas. Abdominal aorta and inferior vena cava: The visualized portions of the abdominal aorta and inferior vena cava are normal in caliber. There is no free fluid in the right upper quadrant. US/US abdomen thakur w elastography IMPRESSION: Hepatomegaly and hepatic steatosis. The median shear wave velocity in the liver is 1.14 m/s, corresponding to a median liver stiffness of 3.9 kPa. The IQR/median value is 0.26. This is indicative of a quality data set. Findings are indicative of a normal elastography value with a low likelihood of severe fibrosis or cirrhosis. Code(s): K75.81 - Nonalcoholic steatohepatitis (ROMO) Category: Medical Plan - The patient is a 74-year-old male presenting with a follow-up for Crohn's Disease and discussion regarding shoulder surgery recovery. - Noted commencement of shoulder pain last summer, leading to surgery for significant rotator cuff and biceps tendon damage. - Shoulder surgery performed by a renowned orthopedic surgeon, Dr. Nicholson, specializing in complex cases, with ongoing rehabilitation noted. - Being on Humira for Crohn's Disease, adjusted doses around surgical periods, maintained without reported adverse effects. - Stable gastrointestinal symptoms with no recurrence of diverticulitis since the last flare-up. - Liver function tests indicated minor enzyme elevation; ultrasound confirmed no severe liver pathology. Return office visit in 6 months Medications: Refilled adalimumab (Humira Pen) 40 mg (0.8 mL) subcut Q2W 2 ea 4RF K50.10 - Crohn's disease of large intestine without complications Coding Level of Care Code Est Pt Level 3 (02561) Diagnoses Crohn's colitis K50.10 Diverticulitis K57.92 ROMO (nonalcoholic steatohepatitis) K75.81
--- OUTSIDE RECORDS SUMMARY | 2025-02-20 09:41 | XMS_ITS | Clinical Summary ---
Author Organization [facility] Address [address] [place] [address] Care Team Providers Care Extension Work Director Name Role Phone Unavailable Primary Care Provider Unavailabl e Social History Tobacco Use Types Packs/Day Years Used Date Smoking Tobacco: Never Assessed Sex and Gender Information Value Date Recorded Sex Assigned at Not on file Legal Sex Male 3:16 PM EDT Gender Identity Not on file Sexual Orientation Not on file Plan of Treatment Health Maintenance Due Date Last Done Comments Advance Care Planning 1950 Hepatitis C Virus Screening 1950 DTaP/Tdap/Td Vaccines (1 - Tdap) 1968 Pneumococcal Vaccines 50+ (1 of 1 - PCV) 12/17/1999 Zoster (Shingles) Vaccine (1 of 2) 12/17/1999 RSV Vaccine 60 years and old er and Patients (1 - 1-dose 75+ series) 2024 COVID-19 Vaccine ( - 2023-2 5 season) 2025 Hepatitis B Vaccines Aged Out No long er eligible based on patient's age to complete this topic
--- OUTSIDE RECORDS SUMMARY | 2025-02-20 09:41 | XMS_ITS | Clinical Summary ---
Author Organization [facility] Address [address] [place] [address] Care Team Providers Care Radiator Cleaner Name Role Phone Sandy Oswald MD Primary Care Provider [phone] Allergies Active Allergy Reactions Criticality Noted Date [...] mg by mouth daily. 0 09/29/2021 Active Celestine-3 Fatty Acids (FISH OIL PO) Take 1,200 [...] 86 10/15/2022 8:03 AM EDT Temperature 36.6 C (97.9 F) 10/15/2022 8:03 AM EDT Respiratory Rate 18 10/15/2022 8:03 AM EDT [...] Evaluation 12/17/1967 Colon Cancer Screening (Colonoscopy) 1994 Fall Risk Assessment 2014 Osteoporosis Screening (DEXA Scan) 2014 Shingrix-Zoster Vaccine (2 of 2) 03/20/2018 01/23/2018 DTap / Tdap / Td (2 - Td or Tdap) 06/27/2024 06/27/2014 RSV Adult > 60+ Yrs or (1 - 1-dose 75+ series) 2024 Influenza Vaccine (#1) 2025 , 01/09/2022, 01/22/2021, Additional history exists Pneumococcal Vaccine Completed 05/05/2019, 08/01/2015, 11/29/2014 Hepatitis B Vaccines Aged Out No long er eligible based on patient's age to complete this topic RSV Ped < 20 months Aged Out No longe r eligible based on patient's age to complete this topic Medical Devices Implanted Type Area Lead Radiation Therapist Device Identifier Shelf Expiration Date Model / Serial / Lot Tritanium Cluster Hole Shell 54mm [facility] [id number] - [id number] Implanted:Qty: 1 on 10/12/2022 by Abdiel Randolph MD at [facility] Left: Hip [employer] [id number] 07/07/2027 [id number] / / [id number] Liner Trident X3 0 Deg 36mm 5.9mm Sz E [facility] [id number] - [id number] Implanted:Qty: 1 on 10/12/2022 by Abdiel Randolph MD at [facility] Left: Hip [employer] [id number] 08/23/2027 [id number] / / [id number] Lp Hex Screw 6.5x25mm Stry-Howm [id number] - [id number] Implanted:Qty: 1 on 10/12/2022 by Abdiel Randolph MD at [facility] Left: Hip [employer] [id number] 08/17/2027 [id number] / / [id number] Hip Head Delta [employer] 36mm -5 Stry-Howm [id number] - [id number] Implanted:Qty: 1 on 10/12/2022 by Abdiel Randolph MD at [facility] Left: Hip [employer] [id number] 07/22/2027 [id number] / / [id number] Insignia Hip Stem Standard Offset Implanted:Qty: 1 on 10/12/2022 by Abdiel Randolph MD at [facility] Left: Hip [employer] 07/30/2027 [id number] / / [id number] Advance Directives For more information, please contact: [phone] Latest Code Status on File Code Status [...] way: discussion with patient . Care Teams Radiator Cleaner Relationship Specialty Start Date End Date Sandy Oswald MD [address] [place] [id number] PCP - General Family Medicine 06/30/22
--- OUTSIDE RECORDS SUMMARY | 2025-02-20 09:41 | XMS_ITS | Patient Health Record ---
[facility] Address [address] [place] [address] Care Team Providers Care Alcohol And Drug Counselor Name Role Phone Jody Qiu Primary Care Provider Reason For Referral No Information Medications Medication SIG (Take, Route, Frequency, Duration) Notes Start Date End Date Status Clotrimazole-Betamethasone 1-0.05 % 1 application to affected area Externally Twice a day; Duration: as needed 11/06/2013 Active Problems Problem Type SNOMED Code ICD Code Onset Dates Problem Status W/U Status Risk Notes Problem Pain in limb (25424578) Pain in Limb (729.5) Active confirmed Problem Hammer toe (120212425) Hammer toe (735.4) Active confirmed Problem Tailors bunion (3260131) Tailors Bunion (727.1) Active confirmed Problem Tinea pedis (7271673) Tinea Pedis (110.4) Active confirmed Plan Of Treatment No Information Insurance Providers Payer Name Payer Address Payer Phone Subscriber Number Group Number Insured Name Patient Relationship to Insured Coverage Start Date Coverage End Date [employer] [address] [address] [place] [address] [id number] Naveed Eason Self - patient is the insured Medical (General) History Medical History History ICD Code Chicken pox Measles Psoriasis/eczema
== END 2025-02-20 09:50 | disposition home or self-care (01) ==
PROVIDERS: PCP Internal Medicine; Visit Provider Nurse Practitioner
DX: K50.10 Crohn's disease of large intestine without complications (principal); K57.92 Diverticulitis of intestine, part unspecified, without perforation or abscess without bleeding; K75.81 Nonalcoholic steatohepatitis (NASH)
CPT/HCPCS: 99213

== ENCOUNTER → 2025-02-20 08:40 | Outpatient (BNVA) | payer MEDICARE, OTHER, SELFPAY | PROVIDERS: PCP Family Medicine; Visit Provider Nurse Practitioner | DX: K50.10 Crohn's disease of large intestine without complications (principal); K57.92 Diverticulitis of intestine, part unspecified, without perforation or abscess without bleeding; K75.81 Nonalcoholic steatohepatitis (NASH) | CPT/HCPCS: 99212 ==